=== PATIENT | female | born 1955 | race Caucasian/White ===

== ENCOUNTER 2017-01-11 08:00 | Inpatient (IN) ==
[2017-01-11] MEDS ORDERED: *HR* Promethazine 25 MG/ML VIAL IVP ONE (09:49)
[2017-01-11] MEDS ORDERED: Naloxone 0.4 MG/ML INJ IVP PRN (10:28)
[2017-01-11] MEDS ORDERED: *HR* Heparin 5,000 UNIT/ML VIAL IVP PRN (10:34)
[2017-01-11] MEDS ORDERED: Heparin 25,000 UNIT/500 ML D5W 25,000 UNIT/500 ML MLS IVC SCH (10:45)
--- NOTE | 2017-01-11 10:50 | Internal Med History&Physical ---
Date of Encounter: 01/11/17 Time of Encounter: 10:00 Assessment and Plan (1) STEMI (ST elevation myocardial infarction) Current visit: Yes Status: Suspected Initial EKG at [place] appears to be STEMI. Currently on IV heparin. Cardiology eval. ASA taken prior to going to ED this AM. To go for [facility] today. Suspect RCA lesion based on EKG changes. Qualifiers: Involved coronary artery: right coronary artery Qualified Code(s): I21.11 - ST elevation (STEMI) myocardial infarction involving right coronary artery (2) Bradycardia Current visit: No Status: Acute Currently NSR but having episodes of bradycardia and hypotension. Most likely related to RCA lesion. [facility] today. Cardiac monitoring on 2N. (3) Fibromyalgia Current visit: Yes Status: Suspected Normally takes amitriptyline at hs. Hold now due to concern for dysrhythmia in the setting of acute [place]. Internal Medicine - H&P: HPI Chief complaint: Arms tingling Admitted From: Hospital to Hospital Transfer Plans for Post Hospital Care: Home History of present illness: Ms. Rodriguez is a 62 year old female with no significant medical history presented to ED at [place] with weakness and arm tingling. She reported that she has noticed bilateral arm tingling when she has been walking. She also has been more dyspneic with walking over the last 5 days (her usual amount of exertion). She felt the tingling was related to carpel tunnel as it improved with changing position. This AM she got up around 2:00. On the way to the bathroom she became dizzy and felt urge to defecate. She used the bathroom and noted that she felt ill and nauseous and subsequently laid down on floor. She reported in ED that she had some chest heaviness then but denied this to me. Prior to going to ED she took 4 baby ASA. In ED at [place] she had reportedly negative EKG and initial troponin of 0.04. During the course of treatment she sat up and became bradycardic and hypotensive. She was given fluids and episode recurred when she sat up again. Repeat troponin was 0.35. Reportedly no EKG changes. Upon arrival to [facility] she denies chest heaviness or pain. No dyspnea. She did have some nausea initially (and heart rate dropped to 40s) but this has resolved. EKG here shows some T wave inversions inferiorly. Review of EKGs from earlier this AM show some subtle ST increase inferiorly. Cardiology has been consulted and is now at the bedside. Past Med Surg Social Fam HX - Past Medical History Medical history: fibromyalgia, other Psychiatric history: anxiety - Past Surgical History Surgical History: breast surgery, cholecystectomy - Social History Smoking Status: Never smoker Smokeless Tobacco Status: No Alcohol use: none Drug use: none Current living situation: Home - Independent Activity Level: Independent ambulation Recent Out of Country Travel Within the Last 8 Weeks: No - Family History Mother Hx Family Cardiac Disorders: Yes (CABG) Hx Family Cancer: Yes (sacral) Father Hx Family Cardiac Disorders: Yes ([place] age 52) Internal Medicine - H&P: Meds Amitriptyline [Elavil] 10 mg PO HS 01/11/17 [History] Amitriptyline [Elavil] 25 mg PO HS 01/11/17 [History] Naproxen Sodium [Aleve] 440 mg PO Q12H PRN 01/11/17 [History] Allergies Iodinated Contrast- Oral and IV Dye Allergy (Verified 01/11/17 03:51) Hives All Systems PM: A 10-system review of systems was performed and is negative for pertinent findings except as documented above in the HPI. - Constitutional Constitutional: fatigue, malaise Additional comments: Hot flashes since off hormonal therapy. - EENT Eyes: no change in vision, no dry eye, no loss of vision Ears: no decreased hearing, no ear pain Nose, mouth and throat: no dry mouth, no epistaxis, no mouth pain, no sore throat - Cardiovascular Cardiovascular ROS IM: diaphoresis, dyspnea, lightheadedness, no irregular heart rhythm - Respiratory Respiratory: dyspnea, no cough, no chest congestion - Gastrointestinal Gastrointestinal: diarrhea, no melena - Genitourinary Genitourinary: no dysuria, no urinary frequency, no urinary urgency Menstruation: post menopausal - Musculoskeletal Musculoskeletal ROS IM: arthralgias - Integumentary Integumentary IM: no new lesions, no rash - Neurological Neurological ROS: tingling, no dizziness - Psychiatric Psychiatric: no anxiety, no depression - Endocrine Endocrine IM: flushing, no cold intolerance - Hematologic/Lymphatic Hematologic/Lymphatic: no easy bleeding - Allergic/Immunologic Allergic/Immunologic: no throat swelling, no wheezing - Constitutional Vitals: Temp Pulse Resp BP Pulse Ox 98.2 F 76 18 125/67 100 01/11/17 09:41 01/11/17 09:41 01/11/17 09:41 01/11/17 09:41 01/11/17 09:41 General appearance: Present: mild distress, A&O X 3, pleasant, answers questions appropriately - Head Head exam: Present: normocephalic - Eye Eye exam: Present: EOMI, conjuntiva pink Pupils: Present: PERRL - ENT ENT exam: Present: mucous membranes moist - Neck Neck exam general surgery: Present: normal inspection. Absent: lymphadenopathy - Respiratory Respiratory exam: Present: CTAB. Absent: rhonchi, wheezes - Cardiovascular Cardiovascular exam: Present: RRR. Absent: tachycardia - GI/Abdominal GI/Abdominal exam: Present: normal bowel sounds, soft. Absent: mass, tenderness - Extremities Exam Extremities exam: Present: warm. Absent: pedal edema, tenderness Additional comments: Pulses palpable bilaterally - Neurological Exam Neurological exam: Present: alert, oriented X3, no focal deficits - Psychiatric Psychiatric exam: Present: normal affect, normal mood - Skin Skin exam: Present: dry, warm. Absent: rash Internal Med - H&P Results - Labs CBC & Chem 7: 01/11/17 11:22 - EKG Data -: EKG Interpreted by Myself EKG shows normal: ST-T waves (T wave inversion inferiorly) Rate: normal - VTE Reasons for not Prescribing Prophylaxis: Not indicated-Anticoagulated or INR therapeutic
--- NOTE | 2017-01-11 10:55 | Cardiology Consult Note ---
<Sofia Concepcion - Last Filed: 01/11/17 11:03> Date of Encounter: 01/11/17 Time of Encounter: 10:45 Assessment and Plan (1) STEMI (ST elevation myocardial infarction) Current Visit: Yes Status: Acute Per cardiology: -STEMI noted on initial ECG from [place] at [address] elevation in leads II, III, and aVF. -Patient will be going for LHC, currently on heparind drip. -Admits to chest achiness currently. Took ASA prior to arrival at [place]. -Troponin 0.03, 0.36. -Creatinine 0.79. -Risks versus benefits of LHC explained to patient and family. Patient agreeable to proceed with LHC. Of note, patient is allergic to IVP dye with hives as reaction. 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 -Further recommendations pending [facility]. Qualifiers: Involved coronary artery: unspecified coronary artery Qualified Code(s): I21.3 - ST elevation (STEMI) myocardial infarction of unspecified site (2) Bradycardia Current Visit: No Status: Acute Per cardiology: -ER report from [facility] reviewed with reports of bradycardia upon sitting with HRs decreasing to the 40s. -At bedside currently HRs 70s, while laying flat. -ECG with ST changes in inferior leads. -Patient will be going for LHC. -Suspect RCA lesion, culprit for bradycardia. Further recommendations pending [facility]. -Will continue to monitor. Discussion w patient/family: The assessment and plan as outlined above was discussed with the patient and/or family members who expressed understanding and agreement. All questions were answered. Thank you for involving us in the care of your patient. Please call with any questions. Seen and examined with . History of Present Illness Consult date: 01/11/17 Requesting physician: Wallace Torrez Consult reason: NSTEMI Chief complaint: nause, chest achiness History of present illness: Ms. Rodriguez is a 62 year old female with a relevant past medical history of fibromyalgia. Patient has a family history of CAD with father with CT at age 52 , mother with CABG in her 70s. Patient presented to [place] with complaints of nausea and chest "achiness." Patient states chest achiness occured last night , however nausea started in the middle of the night. Patient states she has noticed some tingling in both arms over the past week. Also reports increased use of tums for reflux symptoms in the past couple of weeks. Patient reports she is allergic to IVP dye and had hives with IVP dye. Patient states this reaction occured 44 years ago for a cat scan. Patient reports nausea at this time, and reports symptoms improve if she lays flat. If she sits up, however she feels dizzy and lightheaded and nausea increases. Past Med Surg Social Fam HX - Past Medical History Attestation: Yes The following information was validated with the patient. Source: patient, obtained from family Medical history: fibromyalgia, other Psychiatric history: anxiety - Social History Smoking Status: Never smoker Smokeless Tobacco Status: No Alcohol use: none Drug use: none Medications and Allergies Amitriptyline [Elavil] 10 mg PO HS 01/11/17 [History] Amitriptyline [Elavil] 25 mg PO HS 01/11/17 [History] Naproxen Sodium [Aleve] 440 mg PO Q12H PRN 01/11/17 [History] Allergies Iodinated Contrast- Oral and IV Dye Allergy (Verified 01/11/17 03:51) Hives All Systems Review: A 10-system review of systems was performed and is negative for pertinent findings except as documented above in the HPI. - Cardiovascular Cardiovascular: as per HPI - Gastrointestinal Gastrointestinal: nausea - Neurological Neurological: dizziness Physical Examination Vital Signs, Last 4 Hours Temp Pulse Resp BP Pulse Ox 01/11/17 09:41 98.2 F 76 18 125/67 100 01/11/17 09:38 86 General: Conversant, No Apparent Distress HEENT: Atraumatic, Normocephaly, Mucus Membranes Moist Neck: No JVD, Normal carotid pulses Cardiac: Reg Rate and Rhythm, Normal S1 and S2, No Murmur Lungs: Normal Breath Sounds, No Wheeze, Rales, Rhonchi Neuro: Alert and responsive, No focal deficits noted Abdomen: Soft, Non-Tender Skin: No rashes noted on visualized skin Musculoskeletal: No Chest Wall Tenderness Extremities: No Clubbing, No Cyanosis, No Edema, Normal Pulses Results Current Medications Heparin Sodium (Porcine) (Heparin) 2,000 unit IVP Q6H PRN PRN Reason: SEE COMMENTS Stop: 07/13/17 10:35 Heparin Sodium/Dextrose (Heparin 25,000 Unit/500 Ml D5w) 25,000 unit in 500 mls @ 19.41 mls/hr IVC .Q24H GLADYS; 12 UNIT/KG/HR PRN Reason: Protocol Stop: 07/13/17 10:46 Last Admin: 01/11/17 10:54 Dose: 12 unit/kg/hr, 19.41 mls/hr Naloxone HCl (Narcan) 0.4 mg IVP Q2MIN PRN PRN Reason: Opioid Reversal Stop: 07/13/17 10:29 Laboratory Tests 01/11/17 01/11/17 01/11/17 04:25 04:25 04:25 WBC 10.2 Hgb 14.5 Potassium 3.6 Creatinine 0.79 AST 18 ALT 19 Troponin I 0.03 01/11/17 06:29 WBC Hgb Potassium Creatinine AST ALT Troponin I 0.35 H* - Imaging and Cardiology Chest Xray: report reviewed Cardiac cath: pending - EKG Interpretation EKG results cardiology: personally reviewed (ECG 01/11/17 0336 with SR, HR 78. ST changes noted in leads II, III, and aVF.) Consult Discharge Plan - Plan Referrals: NONE,PCP [Primary Care Provider] - <Austen Willett - Last Filed: 01/11/17 17:27> Date of Encounter: 01/11/17 Assessment and Plan Discussion w patient/family: The assessment and plan as outlined above was discussed with the patient and/or family members who expressed understanding and agreement. All questions were answered. Thank you for involving us in the care of your patient. Please call with any questions. History of Present Illness History of present illness: Ms. Rodriguez is a 62 year old female Past Med Surg Social Fam HX - Family History Mother Hx Family Cardiac Disorders: Yes (CABG) Hx Family Cancer: Yes (sacral) Father Hx Family Cardiac Disorders: Yes (CT age 52) All Systems Review: A 10-system review of systems was performed and is negative for pertinent findings except as documented above in the HPI. Physical Examination Vital Signs, Last 4 Hours Temp Pulse Pulse Resp BP Pulse Ox 01/11/17 16:35 81 81 18 119/78 99 01/11/17 16:33 73 01/11/17 16:23 98.0 F 77 18 121/74 100 01/11/17 16:22 72 72 18 121/74 99 01/11/17 16:15 78 78 18 129/80 99 01/11/17 16:00 79 79 18 119/75 100 Results 01/11/17 11:22 Lab Results 01/11/17 01/11/17 11:22 11:22 WBC 10.8 Hgb 14.6 Hct 44.2 Plt Count 245 INR 1.2 APTT 90.3 H D - Attending Attestation Pt seen and examined independently, chart reviewed, old records reviewed. Pt complians of chest tightness, on and off for several weeks, sometimes provoked by exercise, more severe with walking last pm. Pt reports walking has provoked chest pain, mid sternl 6/10 at most severe, down to 3/10 following sublingual ntg. Chest pain has waxed and waned over last four hours, but has been improved with po nitrates. She reports recurrent episodes of this chest discomfort for several months, not as severe as today, accompanied shortness of breath, and bilat arm tingling, usually relieved with in five minutes of sitting. 1. STEMI - EKG demonstrates inferior infarction, pattern of injury suggests recent, recommend emergent LHC/possible PCI Risks and benefits discussed,,pt arees to proceed with diagnostic imaging and PCI if indicated. 2. Bradycardia, symptomatic if tries to stand up, secondary to #1
[2017-01-11 11:36] LABS: INR 1.2
[2017-01-11 11:38] LABS: Activated Partial Thrombo Time 90.3 Seconds (26.0-36.0)
[2017-01-11 11:39] LABS: Hematocrit 44.2 % (35.3-44.9); Hemoglobin 14.6 g/dL (11.5-15.4); Mean Corpuscular Hemoglobin 29.2 pg (28.0-33.3); Mean Corpuscular Volume 88.4 fL (83.0-100.0); Mean Platelet Volume 11.1 fL (9.4-12.4); Platelet Count 245 K/mcL (140-400); Red Cell Distribution Width 12.9 % (11.5-14.5)
[2017-01-11] MEDS ORDERED: *HR* Promethazine 25 MG/ML VIAL IVP PRN (12:36)
[2017-01-11] MEDS ORDERED: Ondansetron 4 MG/2 ML VIAL IVP PRN (13:03)
[2017-01-11] MEDS ORDERED: Nitroglycerin 1,000 MCG/10 ML VIAL IV ONE ×3 (13:36→15:48)
--- NOTE | 2017-01-11 13:59 | Pre-Sedation Evaluation ---
Pre-sedation evaluation - Pre-sedation checklist Date of procedure: 01/11/17 Procedure: [facility] Recent Vitals: Last Vital Signs Temp 98.2 F 01/11/17 09:41 Pulse 86 01/11/17 11:26 Resp 18 01/11/17 11:26 BP 129/78 01/11/17 11:26 Pulse Ox 98 01/11/17 11:26 H&P (including ROS) documented in medical record: No (Awaiting admitter to complete admission paperwork) Previous reaction to sedatives/anesthetics: No Dietary Status: NPO after Midnight Airway Assessment: Patient can open mouth completely, TMJ function normal, Micrognathia (under-bite, receding chin) absent, Neck with adequate range of motion Dentition: No loose teeth or bridges Possible difficult airway: No ASA Classification *see protocol: CLASS II-Mild systemic disease Plan of Care: Pt appropriate candidate for procedure/moderate/conscious sedation , Risks/benefits of procedure/sedation discussed w/ patient/family
[2017-01-11] MEDS ORDERED: *HR* Midazolam HCl 2 MG/2 ML VIAL ONE ×3 (14:00→15:04)
[2017-01-11] MEDS ORDERED: *HR* FentaNYL (PF) 100 MCG/2 ML VIAL ONE ×2 (14:01→15:04)
[2017-01-11] MEDS ORDERED: Heparin 1,000 UNITS/500 mL NS 500 ML ONE (14:01)
[2017-01-11] MEDS ORDERED: 0.9 % Sodium Chloride 1,000 ML ONE ×3 (14:01→20:42)
[2017-01-11] MEDS ORDERED: *HR* Heparin 10,000 UNIT/10 ML VIAL ONE ×2 (14:01→15:48)
[2017-01-11] MEDS ORDERED: methylPREDNISolone 125 MG/2 ML VIAL ONE ×2 (14:09→14:37)
[2017-01-11] MEDS ORDERED: *HR* Bivalirudin 250 MG VIAL IVC ONE ×2 (14:30→14:40)
[2017-01-11] MEDS ORDERED: *HR* Ticagrelor 90 MG TABLET ONE (15:17)
[2017-01-11] MEDS ORDERED: Heparin 1,000 UNITS/500 mL NS 0 ML ONE (15:48)
--- NOTE | 2017-01-11 16:05 | Invasive Diagnostic Lab Proc ---
Name: Merced Rodriguez Date of Study: 01/11/2017 Date: 1955 Ht: 61.8in Medical Record#: [id number] Age: 62 Wt: 178.57lb Gender: Female BSA: 1.82 Order #: [id number] BMI: 32.86 Physicians Procedure Physician: Latonia Lee MD, [facility] Referring MD: Referring MD: Staff Name Position Time In Emil Miller RT (R) Scrub 02:05 PM Josefa Adamsi RT Monitor 02:05 PM Moses Zapata RN Greens Laborer 02:05 PM Venita Humphreys RN Greens Laborer 02:06 PM Indications Indication Non-Stemi Procedures Performed Procedure L HRT ARTERY/VENTRICLE ANGIO PRQ CARD REVASC VT 1 VSL PRQ CARD LATISHA STENT W/ANGIO 1 VSL PRQ CARDIAC ANGIO ADDL ART Pre-Procedure Checklist Informed consent is complete signed and on chart. H&P is on chart. ID band is on and ID verified with patient. Patient NPO for procedure The procedure was described for the patient and questions were answered. Blood Pressure: 138/81 ECG is on chart. Rhythm: NSR Plan of Care Patient will tolerate the procedure without complications. Adequate level of comfort will be maintained. Hemodynamics will remain stable Patient will recover from procedure without complications. Respiratory function will be maintained. Cardiac rhythm will remain stable. Patient temperature will be maintained. Patient and/or family have verbalized understanding of the procedure. Patient Education Intravenous Access Time IV Size Location DC'd Fluid/Drip Rate Units RN 18g 1 /" Patent On Arrival Lt Antecubital 0.9NaCl Allergies Iodinated Contrast- Oral and IV Dye Vital Signs Time BP (mmHg) HR (bpm) O2 Sat. RR (bpm) LOC 02:19 PM / % 5 = Fully awake and oriented or at pre-proc level 02:19 PM / % 4 = Oriented but drowsy 02:34 PM / % 4 = Oriented but drowsy 02:49 PM / % 4 = Oriented but drowsy 03:06 PM / % 4 = Oriented but drowsy 02:15 PM 151 / 86 84 100 % 23 02:20 PM 140 / 88 81 100 % 15 02:25 PM 138 / 81 77 100 % 14 02:30 PM 121 / 70 75 100 % 15 02:35 PM 127 / 80 73 100 % 16 02:40 PM 134 / 85 87 99 % 16 02:45 PM 126 / 82 80 95 % 19 02:50 PM 127 / 81 81 95 % 14 02:55 PM 133 / 83 81 99 % 23 03:00 PM 118 / 71 79 95 % 18 03:05 PM 122 / 68 73 97 % 13 03:10 PM 129 / 82 80 97 % 16 03:15 PM 131 / 85 81 98 % 14 03:20 PM 134 / 79 77 99 % 15 03:25 PM 123 / 75 85 99 % 14 Procedural Medications Time Medication Dose Units Method Given By 02:15 PM Oxygen 2 L/min nasal cannula Moses Zapata RN 02:40 PM Versed 1 mg Intravenous Moses Zapata RN 02:40 PM Fentanyl 25 mcg Intravenous Moses Zapata RN 02:38 PM Solu-medrol 125 mg Intravenous Moses Zapata RN 02:39 PM Benadryl 25 mg Intravenous Moses Zapata RN 02:23 PM Lidocaine 2% 15 ml Subcutaneous Latonia Lee MD, FACC 02:35 PM Angiomax 0.75mg/kg bolus: 12 ml Intravenous Moses Zapata RN 02:35 PM Angiomax 1.75mg/kg/hr: 28 ml Intravenous Moses Zapata RN 02:43 PM Versed 1 mg Intravenous Moses Zapata RN 02:43 PM Fentanyl 25 mcg Intravenous Moses Zapata RN 02:48 PM Oxygen 4 L/min nasal cannula Moses Zapata RN 02:55 PM Nitroglycerin 200 mcg Intracoronary Latonia Lee MD, FACC 03:01 PM Angiomax 1.75mg/kg/hr: 28 ml Intravenous Moses Zapata RN 03:06 PM Versed 1 mg Intravenous Moses Zapata RN 03:06 PM Fentanyl 25 mcg Intravenous Moses Zapata RN 03:23 PM Nitroglycerin 200 mcg Intracoronary Latonia Lee MD, FACC 03:26 PM Brilinta 180 mg Orally Moses Zapata RN ASA Classification: CLASS II- Mild systemic disease (i.e. well-controlled diabetes, hypertension, asthma, cigarette smoking) Manjeet Score Preprocedure Postprocedure Activity 2- Moves 4 extremities sustained head lift Activity 2- Moves 4 extremities sustained head lift Circulation 2- SBP +/= 20 points of pre-anesthetic level Circulation 2- SBP +/= 20 points of pre-anesthetic level Consciousness 2- Awake and alert oriented x 3 Consciousness 2- Awake and alert oriented x 3 O2 Saturation 2- Able to maintain O2 satruation of 92% on room air O2 Saturation 2- Able to maintain O2 satruation of 92% on room air Respiratory 2- Able to deep breathe and cough well Respiratory 2- Able to deep breathe and cough well Total Score 10 Total Score 10 Contrast Agent: Isovue Diagnostic Contrast: 185 ml Total Contrast: 185 ml Fluoro Dose: 848 mGy Procedure Log Time Note Enter By 02:05 PM 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 02:14 PM Vitals capture started with the following parameters, Patient=Adult, Interval=5 min, Initial Yujybjgt=328 mmHg, Deflation Rate=5 mmHg, Cuff placed on Left Arm 02:15 PM HR=84 bpm, ISZU=109/86 mmhg, RgR7=206.0 %, Resp=23 B/min 02:15 PM Time: 14:15 Oxygen on at 2 L/min per nasal cannula by Moses Zapata RN 02:15 PM Time: 14:15 Versed 1 mg Intravenous Given by Moses Zapata RN 02:16 PM Time: 14:15 Fentanyl 25 mcg Intravenous Given by Moses Zapata RN 02:16 PM Time: 14:16 Solu-medrol 125 mg Intravenous Given by Moses Zapata RN 02:18 PM Time: 14:18 Benadryl 25 mg Intravenous Given by Moses Zapata RN :19 PM ASA Class CLASS II- Mild systemic disease (i.e. well-controlled diabetes, hypertension, asthma, cigarette smoking) kk:19 PM Meet and greirvin completed : PM Sign in performed according to hospital policy. : PM Procedure start 14:19 : PM Time: 14:19 Patient comfortable and pain free: Yes : PM Time: 14:19LOC: 5 = Fully awake and oriented or at pre-proc level kk: PM Pressure channel 1 zeroed. 02:20 PM HR=81 bpm, RKWQ=836/88 mmhg, YwD2=882.0 %, Resp=15 B/min, Comment=sr 02:21 PM Time out performed according to hospital policy 02: PM Clinical Presentation: Non-STEMI 02: PM Time: 14:22 Versed 1 mg Intravenous Given by Moses Zapata RN : PM Time: 14:22 Fentanyl 25 mcg Intravenous Given by Moses Zapata RN 02:23 PM Time: 14:23 15 ml Lidocaine 2% to right groin Subcutaneous Given by Latonia Lee MD, [facility] 02:24 PM Access obtained by percutaneous puncture. 5Fr 10cm Terumo [place] sheath placed in right Femoral artery. [id number] 02:25 PM 5Fr FL 4 catheter inserted over the wire [facility] :25 PM HR=77 bpm, PKNY=088/81 mmhg, SpM0=712.0 %, Resp=14 B/min 02:26 PM wire removed 02:27 PM Recorded Pressure: Ao, HR=58, Condition=Condition 1 (Aorta) Ao 88/54/69 02:28 PM LCA angiography performed in multiple views. kk 02:28 PM Catheter removed : PM 5Fr FR 4 catheter inserted over the wire [facility] 02:28 PM wire removed kk 02:28 PM RCA angiography performed in multiple views. [email or web address] 02:30 PM Catheter removed 02:30 PM HR=75 bpm, MQCD=695/70 mmhg, ZnD7=466.0 %, Resp=15 B/min 02:30 PM 5Fr Pigtail catheter inserted over the wire [facility] kk 02:30 PM Catheter selectively placed in left ventricle [email or web address] 02:31 PM Pressure channel 1 zeroed. 02:31 PM Bolus angiogram of left Ventricle complete: 8 ml/sec for a total of 24 mls [email or web address] 02:31 PM Recorded Pressure: LV, HR=77, Condition=Condition 1 (Left Ventricle) LV 86/11/12 02:31 PM Recorded Pressure: LV, Ao, HR=77, Condition=Condition 1 (Left Ventricle) LV 89/16/20, (Aorta) Ao 96/31/73 02:32 PM Catheter removed kk 02:32 PM Sheath exchanged for a 6 Fr 11 cm Rallyhood [place] sheath [id number] kkallner 02:33 PM 6Fr JR 4 [place] Bright-Tip guide catheter was used to cannulate the PCI vessel successfully. reused? No kkallner 02:34 PM wire removed kk 02:34 PM Time: 14:19LOC: 4 = Oriented but drowsy kk 02:34 PM Time: 14:19 Patient comfortable and pain free: Yes [email or web address] 02:34 PM .014 Prowater 180cm guide wire across target lesion- successful. reused? No [email or web address] 02:35 PM Time: 14:35 Angiomax 0.75mg/kg bolus: 12 ml Intravenous Given by Moses Zapata RN Frost pump kkallner 02:35 PM HR=73 bpm, EGMR=712/80 mmhg, FkD3=176.0 %, Resp=16 B/min, Comment=sr 02:35 PM Time: 14:35 Angiomax 1.75mg/kg/hr: 28 ml Intravenous Given by Moses Zapata RN Frost pump kkallner 02:36 PM Recorded Pressure: Ao, HR=81, Condition=Condition 1 (Aorta) Ao 119/64/88 02:38 PM 2.0 mm x 15 mm Mini Trek Rx balloon across target lesion- successful. reused? No kkallner 02:39 PM Balloon inflated @ 8 tong for 15 seconds kkallner 02:40 PM Balloon inflated @ 14 tong for 15 seconds kkallner 02:40 PM HR=87 bpm, DLMM=365/85 mmhg, SpO2=99.0 %, Resp=16 B/min, Comment=sr 02:41 PM Balloon inflated @ 14 tong for 15 seconds kkallner 02:41 PM Balloon inflated @ 8 tong for 15 seconds kkallner 02:42 PM Balloon inflated @ 14 tong for 15 seconds kkallner 02:42 PM Recorded Pressure: Ao, HR=86, Condition=Condition 1 (Aorta) Ao 98/67/82 02:43 PM Balloon inflated @ 14 tong for 15 seconds [email or web address] 02:43 PM Time: 14:43 Versed 1 mg Intravenous Given by Moses Zapata RN kkner 02:43 PM Time: 14:43 Fentanyl 25 mcg Intravenous Given by Moses Zapata RN [email or web address] 02:45 PM Balloon catheter removed intact. [email or web address] 02:45 PM HR=80 bpm, QPUS=741/82 mmhg, SpO2=95.0 %, Resp=19 B/min, Comment=sr 02:45 PM .014 PT Graphix 182cm guide wire across target lesion- successful. reused? No kkallner 02:47 PM 2.0 x 15 balloon reinserted on PT Graphix advanced to ostium of PDA kkallner 02:48 PM Time: 14:48 Oxygen on at 4 L/min per nasal cannula by Moses Zapata RN kkallner 02:49 PM Balloon inflated @ 8 tong for 20 seconds kkallner 02:49 PM Balloon inflated @ 8 tong for 20 seconds kkallner 02:49 PM Time: 14:34LOC: 4 = Oriented but drowsy kkallner 02:49 PM Time: 14:34 Patient comfortable and pain free: Yes [email or web address] 02:50 PM Recorded Pressure: Ao, HR=82, Condition=Condition 1 (Aorta) Ao 102/78/90 02:50 PM HR=81 bpm, JVMN=518/81 mmhg, SpO2=95 %, Resp=14 B/min 02:50 PM Balloon catheter removed intact. [email or web address] 02:52 PM 3.0mm x 20mm Synergy drug-eluting stent across target lesion- successful Lot #[id number] on Prowater kkallner 02:53 PM PT Graphix removed kkallner 02:53 PM Balloon inflated @ 12 tong for 30 seconds kkallner 02:54 PM Balloon inflated @ 16 tong for 12 seconds kkallner 02:55 PM Stent delivery system removed intact. [email or web address] 02:55 PM HR=81 bpm, AJIY=475/83 mmhg, SpO2=99.0 %, Resp=23 B/min 02:55 PM Time: 14:55 Nitroglycerin 200 mcg Intracoronary Given by Latonia Lee MD, [facility] kkallner 02:56 PM Prowater removed kkallner 02:56 PM Guide catheter removed intact. [email or web address] 03:00 PM HR=79 bpm, IVSW=145/71 mmhg, SpO2=95.0 %, Resp=18 B/min 03:00 PM 6Fr XB LAD 3.5 [place] Bright-Tip guide catheter was used to cannulate the PCI vessel successfully. reused? No kkallner 03:01 PM Time: 15:01 Angiomax 1.75mg/kg/hr: 28 ml Intravenous Given by Moses Zapata RN Frost pump kkallner 03:01 PM wire removed kkallner 03:05 PM HR=73 bpm, WZMA=220/68 mmhg, SpO2=97.0 %, Resp=13 B/min, Comment=sr 03:06 PM Time: 14:49 Patient comfortable and pain free: Yes [email or web address] 03:06 PM Time: 14:49LOC: 4 = Oriented but drowsy kkallner 03:06 PM Time: 15:06 Versed 1 mg Intravenous Given by Moses Zapata RN [email or web address] 03:06 PM Time: 15:06 Fentanyl 25 mcg Intravenous Given by Moses Zapata RN [email or web address] 03:07 PM Prowater reinserted kkallner 03:08 PM PT Graphix reinserted kkallner 03:10 PM HR=80 bpm, YKLY=651/82 mmhg, SpO2=97.0 %, Resp=16 B/min 03:11 PM 1.5 mm x 15 mm Emerge Monorail balloon across target lesion- successful. reused? No on PT Graphix Diag kkallner 03:12 PM Balloon inflated @ 10 tnog for 37 seconds kkallner 03:13 PM Balloon inflated @ 10 tong for 20 seconds kkallner 03:15 PM HR=81 bpm, ZERN=624/85 mmhg, SpO2=98.0 %, Resp=14 B/min 03:17 PM Balloon catheter removed intact. [email or web address] 03:17 PM 2.0 x 15 balloon reinserted kkallner 03:17 PM Balloon inflated @ 8 tong for 21 seconds kkallner 03:18 PM Balloon catheter removed intact. [email or web address] 03:20 PM 2.75mm x 20mm Synergy drug-eluting stent across target lesion- successful Lot #[id number] [email or web address] 03:20 PM HR=77 bpm, MLII=186/79 mmhg, SpO2=99.0 %, Resp=15 B/min, Comment=sr 03:21 PM Time: 15:06LOC: 4 = Oriented but drowsy [email or web address] 03:21 PM Time: 15:06 Patient comfortable and pain free: Yes [email or web address] 03:21 PM Stent deployed @ 12 tong for 30 seconds kkallner 03:22 PM Stent delivery system removed intact. [email or web address] 03:24 PM Time: 15:23 Nitroglycerin 200 mcg Intracoronary Given by Latonia Lee MD, FACC kkallner 03:24 PM wires removed kkallner 03:25 PM HR=85 bpm, DDIE=743/75 mmhg, SpO2=99.0 %, Resp=14 B/min 03:25 PM Guide catheter removed intact. [email or web address] 03:25 PM Bolus angiogram of right Femoral complete: 4 ml/sec for a total of 7 mls kkner 03:26 PM Time: 15:26 Brilinta 180 mg Orally Given by Moses Zapata RN [email or web address] 03:28 PM Procedure completed at 15:28 [email or web address] 03:29 PM Sign out completed: Radiation Dose 847.87 mGy Fluoro Time: 16.7 Isovue 370 - 200ml contrast 185 ml given by Latonia Lee MD, FACC. Complications: NoneCardiac Rehab Consult needed: YesConfirmed administered medications: Yes [email or web address] 03:29 PM Isovue 370 - 200ml,1 Bottle(s) used. [email or web address] 03:29 PM Sheath left in place to be pulled on floor/holding area kkallner 03:29 PM Post ECG NSR kkallner 03:29 PM Post Blood Pressure 123/75 kkallner 03:35 PM 15:35 Post Pulses Bilateral DP & PT 2+ kkallner 03:35 PM Information taught Cardiac Cath and PCI kkallner 03:36 PM Education needs Procedure, Plan of Care, and Responsibilities of Patient in Care kkallner 03:36 PM Learning barriers :None kkallner 03:36 PM Education Methods Verbal kkallner 03:36 PM Education evaluation Able to repeat information kkallner 03:36 PM Site status No bleeding/hematoma - Rt Groin as reported by Emil Miller RT (R) at 15:36 kkallner 03:36 PM Opsite applied kkallner 03:36 PM Plavix, Effient or Brilinta given Yes kkallner 03:36 PM Delay to floor No [email or web address] 03:36 PM Patient out of room: 15:36 kkallner 03:36 PM Family placed in consult room. [email or web address] 03:36 PM Complications: None kkallner 03:36 PM Fluoro Time: 16.7 kkallner 03:36 PM Isovue 370 - 200ml contrast 185 ml given by Latonia Lee MD, [facility]. [email or web address] 03:36 PM Radiation Dose 847.87 mGy kkallner 03:40 PM Coronary Dominance: right [email or web address] 03:40 PM Lesion found in LMCA. Pre Stenosis: 15 Pre WALLY Flow: [email or web address] 03:41 PM Lesion found in Proximal LAD. Pre Stenosis: 30 Pre WALLY Flow: kkallner 03:41 PM Lesion found in Mid LAD. Pre Stenosis: 99 Pre WALLY Flow: [email or web address] 03:41 PM Lesion found in 1st Diagonal. Pre Stenosis: 99 Pre WALLY Flow: kkallner 03:41 PM Lesion found in Proximal Circumflex. Pre Stenosis: 30 Pre WALLY Flow: kkallner 03:41 PM Lesion found in 1st Marginal. Pre Stenosis: 99 Pre WALLY Flow: kkallner 03:42 PM Lesion found in Mid RCA. Pre Stenosis: 40 Pre WALLY Flow: kkallner 03:42 PM Lesion found in Distal RCA. Pre Stenosis: 100 Pre WALLY Flow: kkallner 03:42 PM Left Main Coronary Artery with 15% stenosis kkallner 03:42 PM Proximal Left Anterior Descending Coronary Artery with 30% stenosis. If graft is supplying this territory, 0 % stenosis. kkallner 03:42 PM Mid/Distal Left Anterior Descending Coronary Artery and diagonal branches with 99% stenosis. If graft is supplying this area, 0 % stenosis kkallner 03:43 PM Circumflex, Obtuse Marginal, Left Posterior Descending, and Left Posterolateral Coronary Arteries with 99 % stenosis. If graft is supplying this area, 0 % stenosis kkallner 03:43 PM Right Coronary, Right Posterior Descending Arteries with Right Posterolateral and Acute Marginal branches with 100 % stenosis. If graft is supplying this area, 0 % stenosis kkallner 03:43 PM Ramus with 0% stenosis. If graft is supplying this area, 0 % stenosis kkallner 03:44 PM Report given to 2n RN RN Pt taken to 2N Room #7. 15:43 [email or web address] Complications Complication None None Hemodynamics Pressures Site Systolic/A Wave Diastolic/V Wave Mean AO 88 54 69 LV 86 11 12 LV 89 16 20 AO 96 31 73 AO 119 64 88 AO 98 67 82 AO 102 78 90 Post Procedure Information Blood Pressure: 123/75 mmHg Rhythm: NSR Post procedural instructions were given Site Checks Time Location Status Staff Sheath In? Note 03:36 PM Rt Groin No bleeding/hematoma Emil Miller RT (R) Pulses Time Site Pre-Procedure Post-Procedure Note Bilateral DP & PT 2+ 2+ Bilateral radial 2+ 2+ 3:35:00 PM Bilateral DP & PT 2+ Updated by Asya Adams RT (R) on 01/11/2017 3:57:58 PM electronically signed on 01/11/2017 3:58:52 PM with status of Final
[2017-01-11] MEDS ORDERED: Nitroglycerin 0.4 MG TAB.SUBL SL PRN (16:11)
[2017-01-11] MEDS ORDERED: *HR* Morphine 2 MG/ML SYRINGE IVP PRN (16:22)
[2017-01-11] MEDS ORDERED: *HR* HYDROcodone/Acet 5/325 mg TABLET PO PRN (16:23)
[2017-01-11] MEDS ORDERED: Simethicone 80 MG TAB.CHEW PO PRN (16:28)
[2017-01-11] MEDS ORDERED: Ketorolac 30 MG/ML VIAL IVP ONE (16:46)
--- NOTE | 2017-01-11 17:45 | Invasive Diagnostic Lab ---
Name: Merced Rodriguez Date of Study: 01/11/2017 Date: 1955 Ht: 157.0 cm /61.8 in Medical Record#: [id number] Age: 62 Wt: 81. kg / 178.57 lb Account/Order#: [id number] Gender: Female BSA: 1.82 Order #: [id number] Fluoro Dose: 848 mGy BMI: 32.86 Procedure Physician: Latonia Lee MD, [facility] Referring MD: Referring MD: Procedures Performed: LEFT HEART CATH PCI of Acute ND Stent w/ PTCA Single Major Vessel PTCA each add'l branch Indications: STEMI Impressions: Acute ND due to acute thrombotic occlusion of distal RCA. Triple vessel coronary artery disease. Moderate segmental LV dysfunction. EF 40% Patient had successful PTCA/Drug-Eluting Stent placement in the distal RCA. Patient had successful PTCA/Drug-Eluting Stent placement in the mid LAD. Patient had successful PTCA of diagonal 1. Recommendations: Staged PCI of OM1. Dual antiplatelet therapy. Optimal medical therapy of patient's disease. Aggressive risk factor modification. Procedure Access obtained in the right Femoral artery by percutaneous puncture Patient had successful PTCA in the proximal 1st Diagonal. Patient had successful PTCA/Drug-Eluting Stent placement in the distal RCA. Patient had successful PTCA/Drug-Eluting Stent placement in the mid LAD. Complications: None, None Contrast: Isovue 185ml Hemodynamics: Pressures Site Systolic/ A Wave Diastolic/ V Wave End Diastolic/ Mean HR AO 88 54 69 58 LV 86 11 12 77 LV 89 16 20 78 AO 96 31 73 76 AO 119 64 88 81 AO 98 67 82 86 AO 102 78 90 82 LV Ventriculography Ejection Method: LV Gram Ejection Fraction: 40% Wall Motion: CHANDLER Anterobasal Normal Anterolateral Normal Apical: Normal Inferoapical Severe Hypokinesis Inferobasal Severe Hypokinesis Coronary Dominance: right Lesion Findings/Interventions * Left Main Coronary Artery There is a 15% stenosis in the LMCA. * Left Anterior Descending There is a 30% stenosis in the Proximal LAD. There is a 20 mm long, 99% stenosis in the Mid LAD. The lesion has a WALLY flow of 3. An intervention was performed on the Mid LAD with a final stenosis of 0%. There were no lesion complications. The final WALLY flow was 3. There is a 15 mm long, 99% stenosis in the 1st Diagonal. The lesion has a WALLY flow of 3. An intervention was performed on the 1st Diagonal with a final stenosis of 30%. There were no lesion complications. The final WALLY flow was 3. * Circumflex There is a 30% stenosis in the Proximal Circumflex. There is a 99% stenosis in the 1st Marginal. * Right Coronary Artery There is a 40% stenosis in the Mid RCA. There is a 20 mm long, 100% stenosis in the Distal RCA. The lesion has a WALLY flow of 0, has thrombus present, and is a bifurcation lesion. An intervention was performed on the Distal RCA with a final stenosis of 0%. There were no lesion complications. The final WALLY flow was 3. Interventional Device(s) Vessel Segment Type Name Diameter (mm) Length (mm) Mid LAD Drug Eluting Stent Synergy 2.75 20 Mid LAD Balloon Mini Trek Rx 2 15 1st Diagonal balloon Emerge Monorail 1.5 15 Distal RCA Balloon Mini Trek Rx 2 15 Distal RCA Drug Eluting Stent Synergy 3 20 Updated by Latonia Lee MD, FACC on 01/11/2017 5:39:52 PM Latonia Lee MD, FACC electronically signed on 01/11/2017 5:40:48 PM with status of Final
[2017-01-11] MEDS ORDERED: *HR* Atropine Sulfate 1 MG/10 ML SYRINGE ONE (19:44)
[2017-01-12 03:33] LABS: Basophils % 0.1 %; Immature Granulocytes % 0.5 % (0-4); Lymphocytes % 7.3 %; Mean Corpuscular HGB Conc 32.8 g/dL (31.6-35.5); Mean Corpuscular Volume 88.2 fL (83.0-100.0); Monocytes # 0.8 K/mcL (0.0-1.3); Monocytes % 5.6 %; Neutrophils # 11.7 K/mcL (1.6-8.9); Platelet Count 239 K/mcL (140-400); Red Blood Count 4.42 M/mcL (3.82-4.97); Segmented Neutrophils % 86.5 %
[2017-01-12 03:34] LABS: Hemoglobin 12.8 g/dL (11.5-15.4)
[2017-01-12 03:43] LABS: BUN/Creatinine Ratio 17 (6-26); Blood Urea Nitrogen 13 mg/dL (7-20); Calcium 8.9 mg/dL (8.6-10.8); Carbon Dioxide 24 mEq/L (19-29); Chloride 108 mEq/L (98-109); Glucose 151 mg/dL (70-99); Osmolality,Calculated 291 (280-300); Potassium 3.6 mEq/L (3.5-4.5); Sodium 139 mEq/L (136-145); eGFR For African Americans > 60 (> 60); eGFR For Non-African Americans > 60 (> 60)
[2017-01-12] MEDS: Aspirin Enteric Coated 81 MG Tablet PO SCH (07:57)
--- NOTE | 2017-01-12 10:53 | Cardiology Progress Note ---
Date of Encounter: 01/12/17 Time of Encounter: 10:48 Assessment and Plan (1) STEMI (ST elevation myocardial infarction) Current Visit: Yes Status: Suspected Per cardiology: -STEMI noted on initial ECG from [place] at [address] elevation in leads II, III, and aVF. -Troponin 0.03, 0.36. -S/P LHC yesterday revealed acute UT due to acute thrombotic occlusion of distal RCA. Triple vessel CAD. Moderate segmental LV dysfunction EF 40%. Pt had successful PTCA/LATISHA in distal RCA and mid LAD. Successful PTCA of diag 1. -Needs staged PCI of OM as outpt. -Echo pending. -DAPT (ASA and Plavix) uninterrupted x 1 year. Pt verbalizes understanding. Continue Statin. Has not yet received BB or SUZIE-i due to hypotension. Will resume once BP allows. -Pt denies chest pain or dyspnea overnight. Reports episode of nausea with sheath pull when she became hypotensive. -Right femoral access site healing well. No bleeding, hematoma or ecchymosis noted. -Continue to follow, await echo results, monitor BP. Anticipate discharge tomorrow. Qualifiers: Involved coronary artery: right coronary artery Qualified Code(s): I21.11 - ST elevation (STEMI) myocardial infarction involving right coronary artery (2) CAD (coronary artery disease) Current Visit: Yes Status: Acute As above, S/P STEMI and LATISHA to distal RCA and mid LAD, PTCA to diag 1. Needs staged PCI of OM as outpt. ASA, Plavix, Statin. BB and SUZIE-i once BP allows. Qualifiers: Coronary Disease-Associated Artery/Lesion type: [place] artery [place] vs. transplanted heart: [place] heart Associated angina: without angina Qualified Code(s): I25.10 - Atherosclerotic heart disease of [place] coronary artery without angina pectoris (3) Ischemic cardiomyopathy Current Visit: Yes Status: Acute EF on [facility] 40% in setting of STEMI. Echo ordered. BB and SUZIE-i ordered, but not given due to hypotension. Will give once/if BP allows. Pt euvolemic on exam. (4) Hypotension Current Visit: Yes Status: Acute BP as low as 87/48 overnight during sheath pull, received IV fluid bolus. BP this AM 101/64. BB and SUZIE-i currently on hold. Continue to monitor and attempt to resume BB and SUZIE-i once/if BP allows. Qualifiers: Hypotension type: unspecified hypotension type Qualified Code(s): I95.9 - Hypotension, unspecified Discussion w patient/family: The assessment and plan as outlined above was discussed with the patient and/or family members who expressed understanding and agreement. All questions were answered. Thank you for involving us in the care of your patient. Please call with any questions. I will discuss all the above with Dr. Willett and make changes as necessary. Subjective Principal diagnosis: STEMI, CAD Interval history: S/P C yesterday for STEMI. Acute UT due to acute thrombotic occlusion of distal RCA. Triple vessel CAD. Moderate segmental LV dysfunction, EF 40%. Pt had successful PTCA/LATISHA in distal RCA and in mid LAD. Successful PTCA of Diag 1. Pt denies any chest pain or dyspnea overnight. Reports one episode of nausea with sheath pull overnight when she became hypotensive. Objective Vital Signs, Last 4 Hours Temp Pulse Resp BP Pulse Ox 01/12/17 07:31 98.1 F 91 16 101/64 97 01/12/17 07:00 80 Vital Signs Temp Pulse Pulse Resp BP Pulse Ox 01/12/17 07:31 98.1 F 91 16 101/64 97 01/12/17 07:00 80 01/12/17 04:35 98.8 F 95 91/55 01/12/17 02:33 88 93/53 01/12/17 01:27 94 87/48 01/12/17 00:25 80 96/56 01/11/17 23:15 98.7 F 89 105/63 01/11/17 22:45 83 109/63 01/11/17 22:15 87 111/65 01/11/17 21:45 85 110/66 01/11/17 21:35 90 117/65 01/11/17 21:20 91 116/69 01/11/17 21:05 84 112/69 01/11/17 21:00 84 111/63 01/11/17 20:50 88 16 99/54 96 01/11/17 20:45 80 17 93/49 95 01/11/17 20:40 71 19 73/41 94 01/11/17 20:35 73 16 91/55 01/11/17 20:30 87 16 112/67 97 01/11/17 20:25 91 15 123/63 95 01/11/17 20:17 87 16 114/67 95 01/11/17 18:45 88 88 18 125/76 98 01/11/17 18:30 90 90 18 125/80 97 01/11/17 18:15 87 87 18 128/70 98 01/11/17 18:00 89 89 18 121/73 97 01/11/17 17:50 86 86 18 122/72 96 01/11/17 17:35 82 82 18 114/72 98 01/11/17 17:20 78 78 18 113/69 97 01/11/17 17:05 80 80 18 118/74 97 01/11/17 16:50 80 80 18 117/74 96 01/11/17 16:35 81 81 18 119/78 99 01/11/17 16:33 73 01/11/17 16:23 98.0 F 77 18 121/74 100 01/11/17 16:22 72 72 18 121/74 99 01/11/17 16:15 78 78 18 129/80 99 01/11/17 16:00 79 79 18 119/75 100 01/11/17 11:26 86 18 129/78 98 Intake and Output 01/11/17 01/12/17 01/12/17 23:59 07:59 15:59 Intake Total 0 / 0 360 / 360 Output Total 1425 / 1425 Balance -1425 / -1425 360 / 360 Intake: Oral 0 / 0 360 / 360 Output: Catheter 1425 / 1425 Other: Meal Breakfast Percent of Meal Consumed 90% Weight 82.2 kg Patient Weight 01/12/17 23:59 Weight 82.2 kg General: Conversant, No Apparent Distress HEENT: Atraumatic, Normocephaly, Mucus Membranes Moist Neck: No JVD, Normal carotid pulses Cardiac: Reg Rate and Rhythm, Normal S1 and S2, No Murmur Lungs: Normal Breath Sounds, No Wheeze, Rales, Rhonchi Neuro: Alert and responsive, No focal deficits noted Abdomen: Soft, Non-Tender Skin: Other (right femoral access site healing well. No bleeding, hematoma or ecchymosis noted.) Musculoskeletal: No Chest Wall Tenderness Extremities: No Clubbing, No Cyanosis, No Edema, Normal Pulses Results 01/12/17 03:21 01/12/17 03:21 Lab Results 01/11/17 01/11/17 01/12/17 11:22 11:22 03:21 WBC 10.8 13.5 H Hgb 14.6 12.8 D Hct 44.2 39.0 Plt Count 245 239 INR 1.2 APTT 90.3 H D Sodium Potassium Chloride Carbon Dioxide BUN Creatinine Glucose Calcium 01/12/17 03:21 WBC Hgb Hct Plt Count INR APTT Sodium 139 Potassium 3.6 Chloride 108 Carbon Dioxide 24 BUN 13 Creatinine 0.75 Glucose 151 H Calcium 8.9 Short CBC 01/12/17 01/11/17 Range/Units 03:21 11:22 WBC 13.5 H 10.8 (4.3-11.1) K/mcL Hgb 12.8 D 14.6 (11.5-15.4) g/dL Hct 39.0 44.2 (35.3-44.9) % Plt Count 239 245 (140-400) K/mcL Neutrophils # 11.7 H (1.6-8.9) K/mcL BMP 01/12/17 Range/Units 03:21 Sodium 139 (136-145) mEq/L Potassium 3.6 (3.5-4.5) mEq/L Chloride 108 (98-109) mEq/L Carbon Dioxide 24 (19-29) mEq/L BUN 13 (7-20) mg/dL Creatinine 0.75 (0.57-1.11) mg/dL Glucose 151 H (70-99) mg/dL Calcium 8.9 (8.6-10.8) mg/dL Active Medications Hydrocodone Bitart/Acetaminophen ([place] 5-325 Mg) 1 tab PO Q4HR PRN PRN Reason: Pain Stop: 07/13/17 16:24 Aspirin (Aspirin Ec) 81 mg PO DAILY [facility] Stop: 07/14/17 09:01 Last Admin: 01/12/17 07:57 Dose: 81 mg Atorvastatin Calcium (Lipitor) 80 mg PO HS [facility] Stop: 07/13/17 21:01 Last Admin: 01/11/17 21:46 Dose: 80 mg Carvedilol (Coreg) 6.25 mg PO BIDWM [facility] PRN Reason: Protocol Stop: 07/13/17 17:01 Last Admin: 01/11/17 21:47 Dose: Not Given Clopidogrel Bisulfate (Plavix) 75 mg PO DAILY [facility] Stop: 07/14/17 09:01 Last Admin: 01/12/17 07:57 Dose: 75 mg Lisinopril (Zestril) 2.5 mg PO DAILY [facility] PRN Reason: Protocol Stop: 07/14/17 09:01 Morphine Sulfate (Morphine Sulfate) 2 mg IVP Q4HR PRN PRN Reason: Pain Stop: 07/13/17 16:23 Naloxone HCl (Narcan) 0.4 mg IVP Q2MIN PRN PRN Reason: Opioid Reversal Stop: 07/13/17 10:29 Nitroglycerin (Nitroglycerin) 0.4 mg SL Q5MIN PRN PRN Reason: Chest Pain Stop: 07/13/17 16:12 Ondansetron HCl (Zofran) 4 mg IVP Q6HR PRN; Protocol PRN Reason: Nausea Stop: 07/13/17 13:04 Last Admin: 01/11/17 13:15 Dose: 4 mg Promethazine HCl (Phenergan) 12.5 mg IVP Q6HR PRN PRN Reason: Nausea And Vomiting Stop: 07/13/17 12:37 Last Admin: 01/11/17 20:07 Dose: 12.5 mg Simethicone (Gas-X) 80 mg PO TID PRN PRN Reason: Dyspepsia Stop: 07/13/17 16:29 Last Admin: 01/11/17 17:21 Dose: 80 mg - Imaging and Cardiology Cardiac cath: report reviewed - EKG Interpretation EKG results cardiology: other (12 hr tele AVG HR 88, SR, no significant pauses or arrhythmias) - VTE Reasons for not Prescribing Prophylaxis: Not indicated-Anticoagulated or INR therapeutic Consult Discharge Plan - Plan Referrals: Zoey Arthur MD [Non-Partnered Physician] - Nelly Patton CNP [Partnered Physician] - (CARDIOLOGY WILL CALL PATIENT WITH AN APPOINTMENT) Iam Walker CNP [Advanced Practice Nurse] - 01/17/17 10:20 am NONE,PCP [Primary Care Provider] -
[2017-01-12] MEDS: Metoprolol XL (24 HR) Succ 25 MG TAB.ER.24H PO SCH (12:11)
--- NOTE | 2017-01-12 14:03 | Electrocardiograph Report ---
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
--- NOTE | 2017-01-12 15:17 | Electrocardiograph Report ---
[place] [id number] Test Date: 2017-01-11 Pat Name: Merced Rodriguez Department: 110 Room: 2N07 Gender: F Media Planner: LARON : 1955 Requested By: Latonia Lee Order Number: [id number] Reading MD: Diego Joseph MD Measurements Intervals [place] Rate: 79 P: 183 RI: 121 QRS: -52 QRSD: 102 T: -54 QT: 445 QTc: 480 Interpretive Statements SINUS RHYTHM LEFT ATRIAL ENLARGEMENT INFERIOR MYOCARDIAL INFARCTION, OF INDETERMINATE AGE Electronically Signed On 01-12-2017 15:15:24 EDT by Diego Joseph MD
--- NOTE | 2017-01-12 17:18 | Internal Med Progress Note ---
Date of Encounter: 01/12/17 Time of Encounter: 08:35 - Assessment and plan (1) STEMI (ST elevation myocardial infarction) Current Visit: Yes Status: Acute Assessment and plan: -STEMI noted on initial EKG from [place] - ST elevation in leads II, III, and aVF. -Troponin - 0.35. -S/P LHC yesterday - Triple vessel CAD. Moderate segmental LV dysfunction EF 40% , successful PTCA/LATISHA distal RCA, MID LAD. Successful PTCA of diag 1. -Needs staged PCI of OM as outpt -DAPT (ASA and Plavix) uninterrupted x 1 year. Continue Statin Continue metoprolol and lisinopril when blood pressure permits Echocardiogram - pending Anticipate discharge home in a.m. Qualifiers: Involved coronary artery: right coronary artery Qualified Code(s): I21.11 - ST elevation (STEMI) myocardial infarction involving right coronary artery (2) Ischemic cardiomyopathy Current Visit: Yes Status: Acute Assessment and plan: LVEF 40% seen during LHC - in the setting of STEMI Echocardiogram pending (3) Fibromyalgia Current Visit: Yes Status: Chronic - Time Spent With Patient 25 - 35 minutes - Subjective Interval history: Examined this morning. Patient is awake and alert. Not in any distress. Denies chest pain or shortness of breath. Patient admitted for STEMI. Patient underwent LHC yesterday with successful PTCA/LATISHA placement in the distal RCA, mid LAD and diagonal 1. LVEF 40%. Right femoral cath site looks okay. Distal pulses palpable. Hemodynamically stable. Patient will need to be continued on dual antiplatelet therapy. Anticipate discharge in a.m. - Constitutional Vitals: Temp Pulse Resp BP Pulse Ox 97.9 F 94 16 120/68 97 01/12/17 15:15 01/12/17 15:15 01/12/17 15:15 01/12/17 15:15 01/12/17 15:15 General appearance: Present: A&O X 3, pleasant, no acute distress, answers questions appropriately - Head Head exam: Present: atraumatic - Eye Eye exam: Present: EOMI - ENT ENT exam: Present: mucous membranes moist - Neck Neck exam general surgery: Present: supple - Respiratory Respiratory exam: Present: CTAB. Absent: rales, rhonchi, wheezes, tachypnea - Cardiovascular Cardiovascular exam: Present: RRR, +S1, +S2 - GI/Abdominal GI/Abdominal exam: Present: soft. Absent: distended, firm, guarding, tenderness - Extremities Exam Extremities exam: Present: radial pulses palpable and symmetrical. Absent: cyanotic, pedal edema Additional comments: Right femoral cath site looks okay, distal pulses palpable - Neurological Exam Neurological exam: Present: alert, oriented X3, no focal deficits. Absent: facial droop, speech deficit Internal Medicine: Result - Labs CBC & Chem 7: 01/12/17 03:21 01/12/17 03:21 Labs: Short CBC 01/12/17 Range/Units 03:21 WBC 13.5 H (4.3-11.1) K/mcL Hgb 12.8 D (11.5-15.4) g/dL Hct 39.0 (35.3-44.9) % Plt Count 239 (140-400) K/mcL Neutrophils # 11.7 H (1.6-8.9) K/mcL BMP 01/12/17 03:21 Sodium 139 Potassium 3.6 Chloride 108 Carbon Dioxide 24 BUN 13 Creatinine 0.75 Glucose 151 H Calcium 8.9 - ABG Interpretation ABG results: PT/INR, D-dimer PT 13.0 Seconds (9.4-12.1) H 01/11/17 11:22 - VTE Reasons for not Prescribing Prophylaxis: Not indicated-Anticoagulated or INR therapeutic Consult Discharge Plan - Plan Referrals: Zoey Arthur MD [Non-Partnered Physician] - Nelly Pattno CNP [Partnered Physician] - (CARDIOLOGY WILL CALL PATIENT WITH AN APPOINTMENT) Iam Walker CNP [Advanced Practice Nurse] - 01/17/17 10:20 am NONE,PCP [Primary Care Provider] -
[2017-01-13] MEDS: Aspirin Enteric Coated 81 MG Tablet PO SCH (08:33)
[2017-01-13] MEDS: Metoprolol XL (24 HR) Succ 25 MG TAB.ER.24H PO SCH (08:33)
[2017-01-13 12:08] VITALS: BP 114/67
--- NOTE | 2017-01-13 12:25 | Discharge Summary ---
Date of Encounter: 01/13/17 Time of Encounter: 08:30 - Discharge Diagnosis (1) STEMI (ST elevation myocardial infarction) Priority: Primary Status: Acute Comments: -STEMI noted on initial EKG from [place] - ST elevation in leads II, III, and aVF. -Troponin - 0.35. -S/P [facility] - Triple vessel CAD. Moderate segmental LV dysfunction EF 40%, successful PTCA/LATISHA distal RCA, MID LAD. Successful PTCA of diag 1. -Needs staged PCI of OM as outpt -DAPT (ASA and Plavix) uninterrupted x 1 year. Continue Statin Continue metoprolol and lisinopril when blood pressure permits Echocardiogram - LVEF 60%, normal LV diastolic function, normal RV size and function Discharge home today, follow up with PCP and cardiology as outpatient Patient will need to return for PCI of OM as outpatient Qualifiers: Involved coronary artery: right coronary artery Qualified Code(s): I21.11 - ST elevation (STEMI) myocardial infarction involving right coronary artery (2) Ischemic cardiomyopathy Priority: Primary Status: Acute Comments: LVEF 40% seen during [facility] - in the setting of STEMI Echocardiogram - LVEF 60% with normal diastolic function, normal RV size and function Continue current meds (3) Fibromyalgia Priority: Secondary Status: Chronic - Discharge Medications Prescriptions: Nitroglycerin 0.4 mg SL Q5MIN PRN #20 PRN Reason: Chest Pain Aspirin Enteric Coated [Aspirin EC] 81 mg PO DAILY #30 Atorvastatin [Lipitor] 80 mg PO HS #30 tab Clopidogrel [Plavix] 75 mg PO DAILY #30 tab Lisinopril [Zestril] 2.5 mg PO DAILY #30 tab Metoprolol XL (24 HR) Succ [Toprol Xl] 12.5 mg PO DAILY #30 Home Medications: Amitriptyline [Elavil] 10 mg PO HS 01/11/17 [History] Amitriptyline [Elavil] 25 mg PO HS 01/11/17 [History] Aspirin Enteric Coated [Aspirin EC] 81 mg PO DAILY #30 01/13/17 [Rx] Atorvastatin [Lipitor] 80 mg PO HS #30 tab 01/13/17 [Rx] Clopidogrel [Plavix] 75 mg PO DAILY #30 tab 01/13/17 [Rx] Lisinopril [Zestril] 2.5 mg PO DAILY #30 tab 01/13/17 [Rx] Metoprolol XL (24 HR) Succ [Toprol Xl] 12.5 mg PO DAILY #30 01/13/17 [Rx] Nitroglycerin 0.4 mg SL Q5MIN PRN #20 01/13/17 [Rx] Allergies/Adverse Reactions: 3 Allergy/AdvReac Type Severity Reaction Status Date / Time Iodinated Contrast- Oral and Allergy Hives Verified 01/11/17 03:51 IV Dye Procedures/tests Complete & Pending: Procedures Performed prior 72 hours Category Date Time Status CL Cardiac Catheterization [CL] Routine Massotherapist 01/11/17 10:40 Completed ECG 12 lead ECG [ECG] Routine Y 01/11/17 10:10 Completed ECG 12 lead ECG [ECG] Routine Y 01/11/17 20:25 Completed ECG 12 lead ECG [ECG] Stat Y 01/11/17 16:11 Completed EKG [ECG 12 lead ECG] [ECG] Stat Y 01/11/17 09:50 Completed EV echocardiogram Routine Y 01/12/17 10:45 Completed Date of admission: 01/11/17 10:28 Primary care physician: PCP NONE Consults: 01/11/17 10:30 Consult to Physician [CONS] Routine Consulting Provider: Austen Willett Reason for Consult: Acute [place] Time Notified: 10:15 Call Completed: Yes 01/11/17 11:23 Consult to Cardiac Rehabilitation-Phase1 [CONS] Routine Comment: Reason for Consult: STEMI Call Completed: No Anticipated date of discharge: 01/13/17 - Patient Status Disposition: Home, Self-Care Condition: Good Functional capacity at discharge: independent ambulation Overall status at discharge: patient is progressing back to baseline - Discharge Instructions Instructions: Metoprolol (By mouth), Nitroglycerin (By mouth), Lisinopril (By mouth), Aspirin (By mouth), Atorvastatin (By mouth), Clopidogrel (By mouth), Myocardial Infarction (DC), Heart Healthy Diet (DC) Follow Up With: Nelly Patton CNP [Partnered Physician] - (CARDIOLOGY WILL CALL PATIENT WITH AN APPOINTMENT) Iam Walker CNP [Advanced Practice Nurse] - 01/17/17 10:20 am Additional Instructions: RISK FACTORS: STOP SMOKING: If you smoke, STOP. Smoking or tobacco use significantly increases your risk of heart disease because nicotine causes the arteries to narrow or constrict. It also causes fats to stick to the artery. Your chances of having a heart attack are greatly increased if you continue to smoke. For more information, call the education line for smoking cessation 7-318-AMICKPX EAT A LOW FAT/CHOLESTEROL/SODIUM DIET: This diet may help reduce your chances of having a heart attack. LIFTING: Avoid lifting anything more than 10 pounds for 5-7 days Prior to straining, laughing, sneezing and/or coughing, apply manual pressure directly over insertion site. ACTIVITY: You may walk or climb stairs as tolerated You can resume sexual activity as tolerated In general, you are encouraged to engage in a minimum of 30 minutes or more of moderate intensity physical activity, such as brisk walking, daily or at least 3 -4 times weekly BATHING Do not submerge the site into water (bath tub, hot tub, swimming pool) for 1 week. This can be a source for infection into the blood stream. You may shower after 24 hours SITE CARE: After 24 hours, you may remove the dressing and leave the site open to air. Keep the site clean and dry. Clean gently and pat dry. You can expect bruising and tenderness that gradually resolve within a week or two. Return to work as instructed per your physician Resume driving as instructed per physician Keep all scheduled follow up appointments Resume medications as instructed IMPORTANT: If prescribed a Platelet Aggregation Inhibitor such as, Plavix, Brilinta or Effient: Duration of therapy is minimum one year These medications are often used in combination with Aspirin in prevention of future heart attacks Never discontinue unless consult with your Registered Art Therapist STROKE (CVA) Risk factors for a stroke are: Age, cigarette smoking, diabetes, excessive alcohol consumption, family history, high blood pressure, overweight, physical inactivity, prior stroke, heart attack, diagnosis of carotid artery stenosis or other artery disease. Warning signs: Sudden numbness or weakness of the face, arm or leg; especially on one side of the body, sudden confusion, trouble speaking or understanding, sudden trouble seeing in one or both eyes, sudden trouble walking, dizziness, loss of balance or coordination, sudden severe headache with no cause. Call 911 or go to the Emergency Room. CONGESTIVE HEART FAILURE: If you have been diagnosed with Congestive Heart Failure (CHF) and your symptoms return, make an appointment with your physician Weigh yourself daily. Notify your physician if you have a weight gain of two or more pounds in one day or five or more pounds in one week. If you experience any difficulty breathing, please call 911 BLEEDING: Although the risk of bleeding is minimal, it can happen. If you have any bleeding from the site, apply firm pressure above the puncture site for 10-15 minutes. If the bleeding does not stop, continue manual pressure and call 911 Contact your physician if: You develop a fever greater than 101 degrees Fahrenheit Your site becomes reddened or has any drainage You have an increase in pain or burning at the site or if a large knot forms at the site. If you experience chest pain, shortness of breath, dizziness, or extreme tiredness, stop the activity and rest. Please notify your physicians office if you experience any of these symptoms and they are not relieved by rest please call 911! - Diet and Activity Activity: increase activity as tolerated Diet: low fat, low cholesterol Hospital course: Ms. Rodriguez is a 62 year old female with past medical history of fibromyalgia. Patient presented to the ED after [place] with weakness and arm tingling. Patient also stated that she has been more dyspneic over the past 5 days prior to admission. Patient apparently became bradycardic in the ED and hypotensive. Initial troponin was 0.04. Repeat troponin was 0.35. EKGs revealed subtle ST elevation in the inferior leads. Cardiology evaluated the patient immediately. Patient was given loading dose of aspirin. Left heart catheterization was done. Patient had triple-vessel coronary artery disease. She had successful PTCA and drug-eluting stent placement in the distal RCA and mid LAD. She had successful PTCA of diagonal 1. Patient will require a staged PCI of OM1. Patient tolerated procedure well. She is now on aspirin and atorvastatin and Plavix. She has also been started on low-dose lisinopril and metoprolol. Patient was initially found to have ischemic cardiomyopathy in the setting of acute STEMI. Repeat echocardiogram revealed LVEF 60% with normal function and size of LV. Patient did not have any other acute events or complications during her stay in the hospital. Patient and family members have been explained about her condition and plan of care in detail. They understood and agreed. No one answered questions. Patient will follow up with primary care physician and cardiology as outpatient. Patient states she feels better and wants to go home. She is being discharged in a stable condition. - Time Spent with Patient Total time spent providing and/or coordinating discharge services: Greater than 30 minutes - Constitutional Vitals: Temp Pulse Resp BP Pulse Ox 98.0 F 82 15 114/67 99 01/13/17 12:05 01/13/17 12:06 01/13/17 12:05 01/13/17 12:05 01/13/17 12:05 General appearance: Present: A&O X 3, pleasant, no acute distress, answers questions appropriately - Head Head exam: Present: atraumatic - Eye Eye exam: Present: EOMI - ENT ENT exam: Present: mucous membranes moist - Neck Neck exam general surgery: Present: supple - Respiratory Respiratory exam: Present: CTAB. Absent: rales, rhonchi, wheezes, tachypnea - Cardiovascular Cardiovascular exam: Present: RRR, +S1, +S2 - GI/Abdominal GI/Abdominal exam: Present: soft. Absent: distended, firm, guarding, tenderness - Extremities Exam Extremities exam: Present: radial pulses palpable and symmetrical. Absent: cyanotic, pedal edema - Neurological Exam Neurological exam: Present: alert, oriented X3, no focal deficits - VTE Reasons for not Prescribing Prophylaxis: Not indicated-Anticoagulated or INR therapeutic
--- NOTE | 2017-01-13 13:35 | Cardiology Progress Note ---
Date of Encounter: 01/13/17 Time of Encounter: 13:32 Assessment and Plan (1) STEMI (ST elevation myocardial infarction) Status: Acute Per cardiology: -STEMI noted on initial ECG from [place] with ST elevation in leads II, III, and aVF. -Troponin 0.03, 0.36. -S/P [facility] 12/11/16 revealed acute LA due to acute thrombotic occlusion of distal RCA. Triple vessel CAD. Moderate segmental LV dysfunction EF 40%. Pt had successful PTCA/LATISHA in distal RCA and mid LAD. Successful PTCA of diag 1. -Needs staged PCI of OM as outpt. -Echo revealed EF 60%, there is moderate mitral regurgitation. -DAPT (ASA and Plavix) uninterrupted x 1 year. Pt verbalizes understanding. Continue Statin and bb. B/p improved from yesterday. Carvedilol changed to lopressor. NTG use, indication, and SE reviewed. Recommend NTG RX at discharge. -Pt denies chest pain or dyspnea overnight. -Right femoral access site healing well. No bleeding, hematoma or ecchymosis noted. -Okay for discharge from cardiac standpoint. Out patient f/u will be made by [facility]. Call with questions. Qualifiers: Involved coronary artery: right coronary artery Qualified Code(s): I21.11 - ST elevation (STEMI) myocardial infarction involving right coronary artery (2) CAD (coronary artery disease) Status: Acute As above, S/P STEMI and LATISHA to distal RCA and mid LAD, PTCA to diag 1. Needs staged PCI of OM as outpt. ASA, Plavix, Statin, BB. NTG SL PRN chest pain. Qualifiers: Coronary Disease-Associated Artery/Lesion type: [place] artery [place] vs. transplanted heart: [place] heart Associated angina: without angina Qualified Code(s): I25.10 - Atherosclerotic heart disease of [place] coronary artery without angina pectoris Discussion w patient/family: The assessment and plan as outlined above was discussed with the patient and/or family members who expressed understanding and agreement. All questions were answered. Thank you for involving us in the care of your patient. Please call with any questions. Subjective Principal diagnosis: STEMI, CAD Interval history: denies chest pain. Sitting in her room conversing with family and friends. Patient had multiple questions that were answered. Objective Vital Signs, Last 4 Hours Temp Pulse Resp BP Pulse Ox 08/17/17 12:06 82 01/13/17 12:05 98.0 F 80 15 114/67 99 General: Conversant, No Apparent Distress HEENT: Atraumatic, Normocephaly, Mucus Membranes Moist Neck: No JVD, Normal carotid pulses Cardiac: Reg Rate and Rhythm, Normal S1 and S2, No Murmur Lungs: Normal Breath Sounds, No Wheeze, Rales, Rhonchi Neuro: Alert and responsive, No focal deficits noted Abdomen: Soft, Non-Tender Skin: No rashes noted on visualized skin Musculoskeletal: No Chest Wall Tenderness Extremities: No Clubbing, No Cyanosis, No Edema, Normal Pulses, Other (Right groin without hematoma. ) Results 01/12/17 03:21 01/12/17 03:21 - Imaging and Cardiology Echo: report reviewed Cardiac cath: report reviewed - EKG Interpretation EKG results cardiology: personally reviewed - VTE Reasons for not Prescribing Prophylaxis: Not indicated-Anticoagulated or INR therapeutic Consult Discharge Plan - Plan Instructions: Metoprolol (By mouth), Nitroglycerin (By mouth), Lisinopril (By mouth), Aspirin (By mouth), Atorvastatin (By mouth), Clopidogrel (By mouth), Myocardial Infarction (DC), Heart Healthy Diet (DC) Additional Instructions: RISK FACTORS: STOP SMOKING: If you smoke, STOP. Smoking or tobacco use significantly increases your risk of heart disease because nicotine causes the arteries to narrow or constrict. It also causes fats to stick to the artery. Your chances of having a heart attack are greatly increased if you continue to smoke. For more information, call the education line for smoking cessation 8-408-ERFIVGU EAT A LOW FAT/CHOLESTEROL/SODIUM DIET: This diet may help reduce your chances of having a heart attack. LIFTING: Avoid lifting anything more than 10 pounds for 5-7 days Prior to straining, laughing, sneezing and/or coughing, apply manual pressure directly over insertion site. ACTIVITY: You may walk or climb stairs as tolerated You can resume sexual activity as tolerated In general, you are encouraged to engage in a minimum of 30 minutes or more of moderate intensity physical activity, such as brisk walking, daily or at least 3 -4 times weekly BATHING Do not submerge the site into water (bath tub, hot tub, swimming pool) for 1 week. This can be a source for infection into the blood stream. You may shower after 24 hours SITE CARE: After 24 hours, you may remove the dressing and leave the site open to air. Keep the site clean and dry. Clean gently and pat dry. You can expect bruising and tenderness that gradually resolve within a week or two. Return to work as instructed per your physician Resume driving as instructed per physician Keep all scheduled follow up appointments Resume medications as instructed IMPORTANT: If prescribed a Platelet Aggregation Inhibitor such as, Plavix, Brilinta or Effient: Duration of therapy is minimum one year These medications are often used in combination with Aspirin in prevention of future heart attacks Never discontinue unless consult with your Cattle [employer] STROKE (CVA) Risk factors for a stroke are: Age, cigarette smoking, diabetes, excessive alcohol consumption, family history, high blood pressure, overweight, physical inactivity, prior stroke, heart attack, diagnosis of carotid artery stenosis or other artery disease. Warning signs: Sudden numbness or weakness of the face, arm or leg; especially on one side of the body, sudden confusion, trouble speaking or understanding, sudden trouble seeing in one or both eyes, sudden trouble walking, dizziness, loss of balance or coordination, sudden severe headache with no cause. Call 911 or go to the Emergency Room. CONGESTIVE HEART FAILURE: If you have been diagnosed with Congestive Heart Failure (CHF) and your symptoms return, make an appointment with your physician Weigh yourself daily. Notify your physician if you have a weight gain of two or more pounds in one day or five or more pounds in one week. If you experience any difficulty breathing, please call 911 BLEEDING: Although the risk of bleeding is minimal, it can happen. If you have any bleeding from the site, apply firm pressure above the puncture site for 10-15 minutes. If the bleeding does not stop, continue manual pressure and call 911 Contact your physician if: You develop a fever greater than 101 degrees Fahrenheit Your site becomes reddened or has any drainage You have an increase in pain or burning at the site or if a large knot forms at the site. If you experience chest pain, shortness of breath, dizziness, or extreme tiredness, stop the activity and rest. Please notify your physicians office if you experience any of these symptoms and they are not relieved by rest please call 911! Referrals: Nelly Patton CNP [Partnered Physician] - (CARDIOLOGY WILL CALL PATIENT WITH AN APPOINTMENT) Iam Walker CNP [Advanced Practice Nurse] - 01/17/17 10:20 am Prescriptions: Nitroglycerin 0.4 mg SL Q5MIN PRN #20 PRN Reason: Chest Pain Aspirin Enteric Coated [Aspirin EC] 81 mg PO DAILY #30 Atorvastatin [Lipitor] 80 mg PO HS #30 tab Clopidogrel [Plavix] 75 mg PO DAILY #30 tab Lisinopril [Zestril] 2.5 mg PO DAILY #30 tab Metoprolol XL (24 HR) Succ [Toprol Xl] 12.5 mg PO DAILY #30
--- NOTE | 2017-01-13 14:42 | Electrocardiograph Report ---
[place] [id number] Test Date: 2017-01-11 Pat Name: Merced Rodriguez Department: 110 Room: 2N07 Gender: F [employer]rain [employer]or: : 1955 Requested By: Latonia Lee Order Number: [id number] Reading MD: Diego Joseph MD Measurements Intervals [place] Rate: 75 P: 50 CT: 128 QRS: 23 QRSD: 101 T: -27 QT: 378 QTc: 408 Interpretive Statements SINUS RHYTHM POSSIBLE INFERIOR MYOCARDIAL INFARCTION, OF INDETERMINATE AGE Electronically Signed On 01-13-2017 14:40:13 EDT by Diego Joseph MD
== END 2017-01-13 13:48 | disposition home or self-care (01) | DRG 247 ==
LOC: 2NNU
PROVIDERS: ADMIT Internal Medicine; ATTEND Family Medicine

== ENCOUNTER 2017-05-15 18:33 | Observation (INO) ==
--- NOTE | 2017-05-15 20:22 | Internal Med History&Physical ---
Date of Encounter: 05/15/17 Time of Encounter: 20:17 Assessment and Plan (1) GERD (gastroesophageal reflux disease) Current visit: Yes Status: Chronic resume home meds Qualifiers: Esophagitis presence: without esophagitis Qualified Code(s): K21.9 - Gastro -esophageal reflux disease without esophagitis (2) HTN (hypertension) Current visit: Yes Status: Chronic controlled Qualifiers: Hypertension type: essential hypertension Qualified Code(s): I10 - Essential (primary) hypertension (3) Fibromyalgia Current visit: No Status: Chronic resume home meds (4) CAD (coronary artery disease) Current visit: No Status: Chronic recent 3 stents placed Qualifiers: Coronary Disease-Associated Artery/Lesion type: [place] artery [place] vs. transplanted heart: [place] heart Associated angina: without angina Qualified Code(s): I25.10 - Atherosclerotic heart disease of [place] coronary artery without angina pectoris (5) Chest pain Current visit: No Status: Acute chest pain tropoin negative will trend troponin and consult cardiology Qualifiers: Chest pain type: other chest pain Qualified Code(s): R07.89 - Other chest pain; R07.8 - Other chest pain Internal Medicine - H&P: HPI Chief complaint: chest pain Admitted From: Intrahospital Transfer Plans for Post Hospital Care: Home History of present illness: Ms. Rodriguez is a 62 year old female Patient transfer from [facility] emergency room due to chest pain. Patient had history of CAD had 3 stent put in recently in December 28 to the LAD and RCA and then she came back on January 14 with acute inferior wall mi ( stemi) underwent cath and intervention of OM with drug-eluting stent to the obtuse marginal vessel. Patient also history of fibromyalgia, GERD, anxiety, patient present to the emergency room at [facility] with chest pain described as discomfort , mild nausea similar to prior cardiac event chest pain that required angioplasty. SHe has some episode yesterday but today chest has been persistent for now about 8 hours. Has some minor EKG changes ., The ER discussed with Dr. Polo and patient was just started on heparin and then transferred here for further evaluation. Past Med Surg Social Fam HX - Past Medical History Medical history: GERD, myocardial infarction Psychiatric history: anxiety - Past Surgical History Surgical History: angioplasty/stent, breast surgery, cholecystectomy - Social History Smoking Status: Never smoker Smokeless Tobacco Status: No Alcohol use: none Drug use: none - Family History Mother Living Status: Still Living Hx Family Cardiac Disorders: Yes (IN,CABG,CHF) Hx Family Respiratory Disorders: Yes (COPD) Hx Family Cancer: Yes Hx Family GI Disorders: No Hx Family Endocrine Disorder: No Hx Family Neuromuscular Disorders: No Hx Family Neurologic Disorders: No Hx Family HEENT Disorders: No Hx Family Autoimmune Disorders: No Father Living Status: Hx Family Cardiac Disorders: Yes (chf, CABG) Hx Family Respiratory Disorders: No Hx Family Cancer: No Hx Family GI Disorders: No Hx Family Endocrine Disorder: No Hx Family Neuromuscular Disorders: No Hx Family Neurologic Disorders: No Hx Family HEENT Disorders: No Hx Family Autoimmune Disorders: No Internal Medicine - H&P: Meds Aspirin Enteric Coated [Aspirin EC] 81 mg PO DAILY #30 01/13/17 [Rx] Clopidogrel [Plavix] 75 mg PO DAILY #30 tab 01/13/17 [Rx] Nitroglycerin 0.4 mg SL Q5MIN PRN #20 01/13/17 [Rx] Famotidine [Pepcid] 20 mg PO BID 03/09/17 [History] Carvedilol [Coreg] 3.125 mg PO BIDWM 04/18/17 [History] Rosuvastatin Calcium [Crestor] 40 mg PO HS 04/18/17 [History] 3 Allergy/AdvReac Type Severity Reaction Status Date / Time Iodinated Contrast- Oral and Allergy Hives Verified 04/19/17 14:19 IV Dye All Systems PM: A 10-system review of systems was performed and is negative for pertinent findings except as documented above in the HPI. - Constitutional Constitutional: no chills, no fever(s), no night sweats - EENT Eyes: no change in vision, no discharge, no pain, no photophobia Ears: no ear discharge, no ear pain, no tinnitus Nose, mouth and throat: no dysphagia, no nasal discharge, no neck pain, no sore throat - Cardiovascular Cardiovascular ROS IM: chest pain - Respiratory Respiratory: no cough, no dyspnea, no wheezing, no excessive phlegm production - Gastrointestinal Gastrointestinal: nausea - Genitourinary Genitourinary: no change in urinary stream, no dysuria, no flank pain, no hematuria - Musculoskeletal Musculoskeletal ROS IM: no numbness, no tingling - Integumentary Integumentary IM: no rash, no unusual bruising - Neurological Neurological ROS: no confusion, no convulsions, no focal weakness, no numbness, no tingling, no tremor(s) - Constitutional Vitals: Temp Pulse Resp BP Pulse Ox 98.0 F 91 15 107/70 98 05/15/17 19:59 05/15/17 19:59 05/15/17 19:59 05/15/17 19:59 05/15/17 19:59 - Eye Eye exam: Present: PERRL, conjuntiva pink, sclera anicteric Pupils: Present: PERRL - Neck Neck exam general surgery: Present: supple, trachea midline. Absent: lymphadenopathy - Respiratory Respiratory exam: Present: CTAB. Absent: accessory muscle use, rales, rhonchi, wheezes - Cardiovascular Cardiovascular exam: Present: RRR, +S1, +S2. Absent: diastolic murmur, gallop, rubs, systolic murmur - GI/Abdominal GI/Abdominal exam: Present: normal bowel sounds, soft, no peritoneal signs. Absent: distended, tenderness - Extremities Exam Extremities exam: Present: warm, radial pulses palpable and symmetrical. Absent : calf tenderness, cyanotic, pedal edema
[2017-05-15] MEDS ORDERED: Acetaminophen 325 MG TABLET PO PRN (20:27)
[2017-05-15] MEDS ORDERED: Naloxone 0.4 MG/ML INJ IVP PRN (20:27)
[2017-05-15] MEDS ORDERED: Ondansetron 4 MG/2 ML VIAL IVP PRN (20:27)
[2017-05-15] MEDS ORDERED: *HR* Morphine 2 MG/ML SYRINGE IVP PRN (20:27)
[2017-05-15] MEDS ORDERED: Nitroglycerin 0.4 MG TAB.SUBL SL PRN (20:29)
[2017-05-16] MEDS ORDERED: *HR* Heparin 5,000 UNIT/ML VIAL IVP PRN ×2 (00:53)
[2017-05-16] MEDS ORDERED: Heparin 25,000 UNIT/500 ML D5W 25,000 UNIT/500 ML BAG IVC SCH (01:00)
[2017-05-16 01:35] LABS: Activated Partial Thrombo Time 115.2 Seconds (26.0-36.0)
[2017-05-16 01:40] LABS: Heparin anti-factor XA UFH 0.81 IU/mL (0.30-0.70)
[2017-05-16 03:55] LABS: Hematocrit 38.1 % (35.3-44.9); Hemoglobin 12.6 g/dL (11.5-15.4); Hemoglobin 12.7 g/dL (11.5-15.4); Mean Corpuscular HGB Conc 33.1 g/dL (31.6-35.5); Mean Corpuscular HGB Conc 33.3 g/dL (31.6-35.5); Mean Corpuscular Hemoglobin 29.4 pg (28.0-33.3); Mean Corpuscular Hemoglobin 29.5 pg (28.0-33.3); Mean Corpuscular Volume 88.4 fL (83.0-100.0); Mean Platelet Volume 10.6 fL (9.4-12.4); Mean Platelet Volume 10.8 fL (9.4-12.4); Platelet Count 238 K/mcL (140-400); Platelet Count 245 K/mcL (140-400); Red Blood Count 4.28 M/mcL (3.82-4.97); Red Blood Count 4.31 M/mcL (3.82-4.97); Red Cell Distribution Width 12.6 % (11.5-14.5); Red Cell Distribution Width 12.8 % (11.5-14.5)
[2017-05-16 04:01] LABS: INR 1.2; Prothrombin Time 12.7 Seconds (9.4-12.1)
[2017-05-16 04:11] LABS: Chol/HDL Ratio 2.1 (0-4.9); Magnesium 2.1 mg/dL (1.6-2.6)
[2017-05-16] MEDS: Famotidine 20 MG TABLET PO SCH ×2 (08:12→16:32)
[2017-05-16] MEDS: Aspirin Enteric Coated 81 MG Tablet PO SCH (08:13)
--- NOTE | 2017-05-16 10:29 | Cardiology Consult Note ---
<Aneudy Metcalf - Last Filed: 05/16/17 14:01> Date of Encounter: 05/16/17 Time of Encounter: 09:00 Assessment and Plan (1) Chest pain Current Visit: Yes Status: Acute Initially presented with chest pain of 8 hours duration. -Initial troponin was negative; repeat troponin was 0.01. -Currently NPO; Patient will go for cardiac catheterization. -Currently on heparin drip. -Continuous cardiac monitoring. Qualifiers: Qualified Code(s): R07.9 - Chest pain, unspecified (2) CAD (coronary artery disease) Current Visit: No Status: Chronic S/P placement of 3 stents. -ASA 81 mg PO daily -Plavix 75 mg PO daily -Coreg 3.125 mg PO BID WM -Crestor 40 mg PO HS Qualifiers: Coronary Disease-Associated Artery/Lesion type: [place] artery [place] vs. transplanted heart: [place] heart Associated angina: without angina Qualified Code(s): I25.10 - Atherosclerotic heart disease of [place] coronary artery without angina pectoris (3) HTN (hypertension) Current Visit: Yes Status: Chronic Last BP was 105/68 Qualifiers: Hypertension type: essential hypertension Qualified Code(s): I10 - Essential (primary) hypertension Discussion w patient/family: The assessment and plan as outlined above was discussed with the patient and/or family members who expressed understanding and agreement. All questions were answered. Thank you for involving us in the care of your patient. Please call with any questions. History of Present Illness Consult date: 05/16/18 Chief complaint: Chest discomfort History of present illness: Ms. Rodriguez is a 62 year old female with a PMH of fibromyalgia who presented with the chief complaint of chest pain. Patient is a transfer from [facility] ED. Patient had history of CAD; had 3 stent put in recently in December 28 to the LAD and RCA and then she came back on January 14 with acute inferior wall LA (STEMI) underwent cath; drug-eluting stent to the obtuse marginal vessel. Patient states that she has been compliant with Plavix and all other medications. On presentation, her chest pain was described as discomfort with mild nausea similar to prior cardiac event. Episode lasted approximately 8 hours. EKG demonstrated borderline left axis deviation and poor R wave progression. Troponin was negative. Patient was seen and examined at bedside this morning. She reports that she is feeling well today. Denies having any chest discomfort, nausea, dizziness, or diaphoresis. No complaints at this time. Past Med Surg Social Fam HX - Past Medical History Medical history: GERD, myocardial infarction Psychiatric history: anxiety - Past Surgical History Surgical History: angioplasty/stent, breast surgery, cholecystectomy - Social History Smoking Status: Never smoker Smokeless Tobacco Status: No Alcohol use: none Drug use: none - Family History Mother Living Status: Still Living Hx Family Cardiac Disorders: Yes Hx Family Respiratory Disorders: Yes (COPD) Hx Family Cancer: Yes Hx Family GI Disorders: No Hx Family Endocrine Disorder: No Hx Family Neuromuscular Disorders: No Hx Family Neurologic Disorders: No Hx Family HEENT Disorders: No Hx Family Autoimmune Disorders: No Father Living Status: Hx Family Cardiac Disorders: Yes Hx Family Respiratory Disorders: No Hx Family Cancer: No Hx Family GI Disorders: No Hx Family Endocrine Disorder: No Hx Family Neuromuscular Disorders: No Hx Family Neurologic Disorders: No Hx Family HEENT Disorders: No Hx Family Autoimmune Disorders: No Medications and Allergies Aspirin Enteric Coated [Aspirin EC] 81 mg PO DAILY #30 01/13/17 [Rx] Clopidogrel [Plavix] 75 mg PO DAILY #30 tab 01/13/17 [Rx] Nitroglycerin 0.4 mg SL Q5MIN PRN #20 01/13/17 [Rx] Famotidine [Pepcid] 20 mg PO BID 03/09/17 [History] Carvedilol [Coreg] 3.125 mg PO BIDWM 04/18/17 [History] Rosuvastatin Calcium [Crestor] 40 mg PO HS 04/18/17 [History] 3 Allergy/AdvReac Type Severity Reaction Status Date / Time Iodinated Contrast- Oral and Allergy Hives Verified 04/19/17 14:19 IV Dye All Systems Review: A 10-system review of systems was performed and is negative for pertinent findings except as documented above in the HPI. - Constitutional Constitutional: no chills, no fever(s) - Cardiovascular Cardiovascular: no chest pain at rest, no chest pain with exertion, no dyspnea at rest, no dyspnea on exertion, no irregular heart rhythm, no lightheadedness, no palpitations - Respiratory Respiratory: no cough, no dyspnea - Gastrointestinal Gastrointestinal: no abdominal pain - Neurological Neurological: no dizziness, no syncope Physical Examination Vital Signs, Last 4 Hours Temp Pulse Resp BP Pulse Ox 05/16/17 07:16 97.5 F L 80 20 105/68 96 General: Conversant, No Apparent Distress Neck: No JVD, Normal carotid pulses Cardiac: Reg Rate and Rhythm, Normal S1 and S2 Extremities: No Edema, Normal Pulses Results 05/16/17 03:46 Lab Results 05/15/17 05/16/17 05/16/17 21:29 00:13 03:46 WBC Hgb Hct Plt Count INR APTT 115.2 H* D Magnesium Troponin I 0.00 0.01 B-Natriuretic Peptide 05/16/17 05/16/17 05/16/17 03:46 03:46 03:46 WBC 9.7 Hgb 12.6 Hct 38.1 Plt Count 238 INR APTT Magnesium 2.1 Troponin I B-Natriuretic Peptide 14 05/16/17 05/16/17 05/16/17 03:46 03:46 08:49 WBC 9.3 Hgb 12.7 Hct 38.1 Plt Count 245 INR 1.2 APTT 56.4 H D Magnesium Troponin I B-Natriuretic Peptide 05/16/17 09:13 WBC Hgb Hct Plt Count INR APTT Magnesium Troponin I 0.01 B-Natriuretic Peptide Consult Discharge Plan - Plan Referrals: Zoey Arthur MD [Primary Care Provider] - <JoLilo - Last Filed: 05/16/17 14:44> Date of Encounter: 05/16/17 - Attending Attestation I examined this patient and my medical decision-making was reviewed with the Resident Physician. I agree with the documented findings, disposition and treatment plan. Ms. Rodriguez has a history of CAD having presented with a STEMI in December of 2016 requiring staged PCI. She developed significant fatigue this past Tuesday and could barely make it through cardiac rehab. She subsequently developed chest discomfort and symptoms similar to those she felt in December at time of PCI. Her cardiac biomarkers have been negative x3 and there may be subtle ECG changes in lead V6 only which is not diagnostic for ischemia. She also admits compliance with DAPT. However, given her presenting symptoms and known history of CAD, we are concerned for unstable angina. I discussed the R/B/A of proceeding with [facility]. The patient expressed understanding. She would like to proceed. Assessment and Plan Discussion w patient/family: The assessment and plan as outlined above was discussed with the patient and/or family members who expressed understanding and agreement. All questions were answered. Thank you for involving us in the care of your patient. Please call with any questions. History of Present Illness History of present illness: Ms. Rodriguez is a 62 year old female All Systems Review: A 10-system review of systems was performed and is negative for pertinent findings except as documented above in the HPI. Physical Examination Vital Signs, Last 4 Hours Temp Pulse Resp BP Pulse Ox 05/16/17 11:50 98.5 F 70 18 119/77 95 Results 05/16/17 03:46 Lab Results 05/15/17 05/16/17 05/16/17 21:29 00:13 03:46 WBC Hgb Hct Plt Count INR APTT 115.2 H* D Magnesium Troponin I 0.00 0.01 B-Natriuretic Peptide 05/16/17 05/16/17 05/16/17 03:46 03:46 03:46 WBC 9.7 Hgb 12.6 Hct 38.1 Plt Count 238 INR APTT Magnesium 2.1 Troponin I B-Natriuretic Peptide 14 05/16/17 05/16/17 05/16/17 03:46 03:46 08:49 WBC 9.3 Hgb 12.7 Hct 38.1 Plt Count 245 INR 1.2 APTT 56.4 H D Magnesium Troponin I B-Natriuretic Peptide 05/16/17 09:13 WBC Hgb Hct Plt Count INR APTT Magnesium Troponin I 0.01 B-Natriuretic Peptide
[2017-05-16] MEDS ORDERED: Heparin 1,000 UNIT, 0.9 % Sodium Chloride 500 ML INARTERIAL ONE (11:00)
--- NOTE | 2017-05-16 14:52 | Internal Med Progress Note ---
Date of Encounter: 05/16/17 Time of Encounter: 14:52 - Assessment and plan (1) Chest pain Current Visit: Yes Status: Acute Assessment and plan: For [facility] today, cardio is following Qualifiers: Chest pain type: unspecified Qualified Code(s): R07.9 - Chest pain, unspecified (2) Fibromyalgia Current Visit: Yes Status: Chronic Assessment and plan: Continue home meds (3) CAD (coronary artery disease) Status: Chronic Assessment and plan: Continue home meds Qualifiers: Coronary Disease-Associated Artery/Lesion type: [place] artery [place] vs. transplanted heart: [place] heart Associated angina: without angina Qualified Code(s): I25.10 - Atherosclerotic heart disease of [place] coronary artery without angina pectoris (4) GERD (gastroesophageal reflux disease) Current Visit: Yes Status: Chronic Assessment and plan: Continue home meds Qualifiers: Esophagitis presence: without esophagitis Qualified Code(s): K21.9 - Gastro -esophageal reflux disease without esophagitis (5) HTN (hypertension) Current Visit: Yes Status: Chronic Assessment and plan: Controlled, continue home meds Qualifiers: Hypertension type: essential hypertension Qualified Code(s): I10 - Essential (primary) hypertension - Subjective Interval history: Seen and evaluated at bedside with family No new complains - Constitutional Vitals: Temp Pulse Resp BP Pulse Ox 98.5 F 70 18 119/77 95 05/16/17 11:50 05/16/17 11:50 05/16/17 11:50 05/16/17 11:50 05/16/17 11:50 General appearance: Present: A&O X 3, pleasant, no acute distress - Head Head exam: Present: atraumatic, normocephalic - Eye Eye exam: Present: PERRL, conjuntiva pink, sclera anicteric Pupils: Present: PERRL - Neck Neck exam general surgery: Present: supple, trachea midline. Absent: lymphadenopathy - Respiratory Respiratory exam: Present: CTAB. Absent: accessory muscle use, rales, rhonchi, wheezes - Cardiovascular Cardiovascular exam: Present: RRR, +S1, +S2. Absent: diastolic murmur, gallop, rubs, systolic murmur - GI/Abdominal GI/Abdominal exam: Present: normal bowel sounds, soft, no peritoneal signs. Absent: distended, tenderness - Extremities Exam Extremities exam: Present: warm, radial pulses palpable and symmetrical. Absent : calf tenderness, cyanotic, pedal edema - Neurological Exam Neurological exam: Present: alert, CN II-XII intact, oriented X3, no focal deficits. Absent: pronater drift, facial droop, speech deficit - Skin Skin exam: Present: dry, intact Internal Medicine: Result - Labs CBC & Chem 7: 05/16/17 03:46 Labs: Short CBC 05/16/17 05/16/17 Range/Units 03:46 03:46 WBC 9.7 9.3 (4.3-11.1) K/mcL Hgb 12.6 12.7 (11.5-15.4) g/dL Hct 38.1 38.1 (35.3-44.9) % Plt Count 238 245 (140-400) K/mcL Cardiac Enzymes 05/15/17 05/16/17 05/16/17 Range/Units 21:29 03:46 09:13 Troponin I 0.00 0.01 0.01 (0-0.03) ng/mL - ABG Interpretation ABG results: PT/INR, D-dimer PT 12.7 Seconds (9.4-12.1) H 05/16/17 03:46 Consult Discharge Plan - Plan Referrals: Zoey Arthur MD [Primary Care Provider] -
--- NOTE | 2017-05-16 17:20 | Pre-Sedation Evaluation ---
Pre-sedation evaluation - Pre-sedation checklist Date of procedure: 05/16/17 Procedure: LHC/PCI CX Recent Vitals: Last Vital Signs Temp 97.9 F 05/16/17 15:08 Pulse 79 05/16/17 15:08 Resp 18 05/16/17 15:08 BP 115/74 05/16/17 15:08 Pulse Ox 95 05/16/17 15:08 H&P (including ROS) documented in medical record: Yes Previous reaction to sedatives/anesthetics: No Dietary Status: NPO after Midnight Dentition: No loose teeth or bridges ASA Classification *see protocol: CLASS II-Mild systemic disease Plan of Care: Pt appropriate candidate for procedure/moderate/conscious sedation
[2017-05-16] MEDS ORDERED: *HR* Midazolam HCl 2 MG/2 ML VIAL ONE (18:30)
[2017-05-16] MEDS ORDERED: 0.9 % Sodium Chloride 1,000 ML ONE ×2 (18:30→18:48)
[2017-05-16] MEDS ORDERED: *HR* FentaNYL (PF) 100 MCG/2 ML VIAL ONE (18:30)
[2017-05-16] MEDS ORDERED: Nitroglycerin 1,000 MCG/10 ML VIAL IV ONE (18:31)
[2017-05-16] MEDS ORDERED: *HR* Heparin 10,000 UNIT/10 ML VIAL ONE (18:31)
[2017-05-16] MEDS ORDERED: methylPREDNISolone 125 MG/2 ML VIAL ONE (18:45)
--- NOTE | 2017-05-16 19:19 | Invasive Diagnostic Lab Proc ---
Name: Merced Rodriguez Date of Study: 05/16/2017 Date: 1955 Ht: 61.8in Medical Record#: [id number] Age: 62 Wt: 176.37lb Gender: Female BSA: 1.81 Order #: [id number] BMI: 32.46 Physicians Procedure Physician: Saul Jimenez MD Referring MD: Zoey Arthur MD Referring MD: Staff Name Position Time In Venita Humphreys RN Business Initiatives Manager 06:36 PM Luis M Villanueva RN Monitor 06:36 PM Carissa Alejandra RT (R) Scrub 06:36 PM Indications Indication Coronary Artery Disease Procedures Performed Procedure CORONARY ARTERY ANGIO S&I Pre-Procedure Checklist Informed consent is complete signed and on chart. H&P is on chart. ID band is on and ID verified with patient. Patient NPO for procedure The procedure was described for the patient and questions were answered. Blood Pressure: 115/74 ECG is on chart. Rhythm: NSR Plan of Care Patient will tolerate the procedure without complications. Adequate level of comfort will be maintained. Hemodynamics will remain stable Patient will recover from procedure without complications. Respiratory function will be maintained. Cardiac rhythm will remain stable. Patient temperature will be maintained. Patient and/or family have verbalized understanding of the procedure. Patient Education Intravenous Access Time IV Size Location DC'd Fluid/Drip Rate Units RN 06:22 PM 18g 1 1/4" Patent On Arrival Rt Antecubital 0.9NaCl 25 ml/hr Luis M Villanueva RN Allergies Iodinated Contrast- Oral and IV Dye Vital Signs Time BP (mmHg) HR (bpm) O2 Sat. RR (bpm) LOC 06:22 PM 115 / 74 79 95 % 16 5 = Fully awake and oriented or at pre-proc level 06:49 PM / % 5 = Fully awake and oriented or at pre-proc level 06:49 PM 136 / 77 86 100 % 16 06:54 PM 138 / 79 85 100 % 27 06:59 PM 108 / 76 82 100 % 27 07:03 PM 109 / 66 80 100 % 10 Procedural Medications Time Medication Dose Units Method Given By 06:48 PM Oxygen 3 L/min nasal cannula Venita Humphreys RN 06:53 PM Solumedrol 125 mg Intravenous Venita Humphreys RN 06:54 PM Benadryl 25 mg Intravenous Venita Humphreys RN 06:54 PM Versed 1 mg Intravenous Venita Humphreys RN 06:54 PM Fentanyl 50 mcg Intravenous Venita Humphreys RN 06:58 PM Lidocaine 2% 10 ml Subcutaneous Saul Jimenez MD ASA Classification: CLASS II- Mild systemic disease (i.e. well-controlled diabetes, hypertension, asthma, cigarette smoking) Manjeet Score Preprocedure Postprocedure Activity 2- Moves 4 extremities sustained head lift Activity 2- Moves 4 extremities sustained head lift Circulation 2- SBP +/= 20 points of pre-anesthetic level Circulation 2- SBP +/= 20 points of pre-anesthetic level Consciousness 2- Awake and alert oriented x 3 Consciousness 2- Awake and alert oriented x 3 O2 Saturation 2- Able to maintain O2 satruation of 92% on room air O2 Saturation 2- Able to maintain O2 satruation of 92% on room air Respiratory 2- Able to deep breathe and cough well Respiratory 2- Able to deep breathe and cough well Total Score 10 Total Score 10 Contrast Agent: Isovue Diagnostic Contrast: 51 ml Total Contrast: 51 ml Fluoro Dose: 72 mGy Procedure Log Time Note Enter By 06:28 PM CathStat 06:36 PM Pt arrived to record label internship 2 at 18:36 tsites 06:36 PM Venita Humphreys RN Position: CirculatorTime in: 18:36 tsites 06:36 PM Luis M Villanueva RN Position: Monitor Time in: 18:36 tsites 06:37 PM Carissa Alejandra RT (R) Position: Scrub Time in: 18:36 tsites 06:39 PM Patient charges- Angio tray pack, Navilyst 3mm J, Pulse Oximetry and ACIST tubing and transducer tsites 06:39 PM Physician arrived 18:39 tsites 06:39 PM Meet and greet completed tsites 06:39 PM Sign in performed according to hospital policy. tsites 06:39 PM Procedure start 18:39 tsites 06:[address] Jimenez discussing risk for dye allergy tsites 06:48 PM Vitals capture started with the following parameters, Patient=Adult, Interval=5 min, Initial Azjzsddr=420 mmHg, Deflation Rate=5 mmHg, Cuff placed on Right Arm 06:48 PM Time: 18:48 Oxygen on at 3 L/min per nasal cannula by Venita Humphreys RN [facility] 06:48 PM Case Start 06:49 PM HR=86 bpm, XGIG=385/77 mmhg, TjP1=465.0 %, Resp=16 B/min, Comment=SR 06:49 PM Time: 18:49 Patient comfortable and pain free: Yes [facility] 06:49 PM Time: 18:49LOC: 5 = Fully awake and oriented or at pre-proc level [facility] 06:53 PM Time: 18:53 Solumedrol 125 mg Intravenous Given by Venita Humphreys RN [facility] 06:54 PM HR=85 bpm, PJYL=661/79 mmhg, QyB1=415.0 %, Resp=27 B/min, Comment=SR 06:54 PM Time: 18:54 Benadryl 25 mg Intravenous Given by Venita Humphreys RN [facility] 06:54 PM Time: 18:54 Versed 1 mg Intravenous Given by Venita Humphreys RN [facility] 06:54 PM Time: 18:54 Fentanyl 50 mcg Intravenous Given by Venita Humphreys [facility] 06:57 PM Recorded ECG: HR=76 Condition=Condition 1 06:57 PM Pressure channel 1 zeroed. 06:58 PM Time out performed according to hospital policy [facility] 06:58 PM Time: 18:58 10 ml Lidocaine 2% to right groin Subcutaneous Given by Saul Jimenez MD [facility] 06:58 PM Micro-Introducer Kit utilized for sheath placement csmith 06:59 PM HR=82 bpm, ZWIF=476/76 mmhg, PcG9=601.0 %, Resp=27 B/min, Comment=SR 06:59 PM Access obtained by percutaneous puncture. 6Fr 10cm Terumo [place] sheath placed in right Femoral artery. [id number] [facility] 06:59 PM 5Fr FR 4 catheter inserted over the wire [facility] 06:59 PM Recorded Pressure: Ao, HR=80, Condition=Condition 1 (Aorta) Ao 96/54/75 07:00 PM RCA angiography performed in multiple views. [facility]smith 07:00 PM Catheter removed [facility] 07:00 PM 5Fr FL 4 catheter inserted over the wire [facility] 07:01 PM LCA angiography performed in multiple views. [facility] 07:01 PM Recorded Pressure: Ao, HR=83, Condition=Condition 1 (Aorta) Ao 98/62/78 07:02 PM Catheter removed [facility] 07:03 PM Wire removed [facility] 07:03 PM Bolus angiogram of right Femoral complete: 4 ml/sec for a total of 7 mls [facility] 07:03 PM HR=80 bpm, YJRT=248/66 mmhg, CkY3=891.0 %, Resp=10 B/min, Comment=SR 07:04 PM Procedure completed at 19:04 csmith 07:04 PM Sign out completed: Radiation Dose 72 mGy Fluoro Time: 0.7 Isovue 370 - 200ml contrast 51 ml given by Saul Jimenez MD. Complications: NoneCardiac Rehab Consult needed: NoConfirmed administered medications: Yes csmith 07:04 PM Isovue 370 - 200ml,1 Bottle(s) used. csmith 07:04 PM Arterial sheath pulled, Mynx closure device used and was Successful [id number] S/N. csmith 07:04 PM Post ECG NSR [facility]smith 07:05 PM Post Blood Pressure 109/66 [facility] 07:05 PM 19:05 Post Pulses Bilateral DP & PT 1+ csmith 07:05 PM Information taught Mynx csmith 07:05 PM Education needs Responsibilities of Patient in Care csmith 07:05 PM Learning barriers :None [facility] 07[facility]05 PM Education Methods Verbal [facility] 07:05 PM Education evaluation Able to repeat information [facility] 07:05 PM Site status No bleeding/hematoma - Rt Groin as reported by Carissa Alejandra RT (R) at 19:05 [facility] 07:05 PM Plavix, Effient or Brilinta given No [facility]smith 07:10 PM Lesion found in LMCA. Pre Stenosis: 15 Pre WALLY Flow: 3: Complete and Brisk Flow/Perfusion csmith 07:11 PM Lesion found in Proximal LAD. Pre Stenosis: 30 Pre WALLY Flow: 3: Complete and Brisk Flow/Perfusion csmith 07:11 PM Lesion found in 1st Diagonal. Pre Stenosis: 30 Pre WALLY Flow: 3: Complete and Brisk Flow/Perfusion csmith 07:11 PM Lesion found in Proximal Circumflex. Pre Stenosis: 30 Pre WALLY Flow: 3: Complete and Brisk Flow/Perfusion csmith 07:11 PM Lesion found in Mid RCA. Pre Stenosis: 40 Pre WALLY Flow: 3: Complete and Brisk Flow/Perfusion csmith 07:14 PM Patient out of room: 19:13 [facility] Complications Complication None Hemodynamics Pressures Site Systolic/A Wave Diastolic/V Wave Mean AO 96 54 75 AO 98 62 78 Post Procedure Information Blood Pressure: 109/66 mmHg Rhythm: NSR Post procedural instructions were given Closure Device Time Device Success/Fail 05/16/2017 7:06:00 PM MynxGrip Successful Site Checks Time Location Status Staff Sheath In? Note 07:05 PM Rt Groin No bleeding/hematoma Carissa Alejandra RT (R) Pulses Time Site Pre-Procedure Post-Procedure Note Bilateral DP & PT 1+ 7:05:00 PM Bilateral DP & PT 1+ Updated by Latesha Jung RT (R) on 05/16/2017 7:14:05 PM Latesha Jung RT electronically signed on 05/16/2017 7:14:36 PM with status of Final
[2017-05-17 04:41] LABS: Basophils % 0.1 %; Hemoglobin 13.1 g/dL (11.5-15.4); Immature Granulocytes % 0.3 % (0-4); Lymphocytes # 0.9 K/mcL (0.6-4.6); Lymphocytes % 12.3 %; Mean Corpuscular HGB Conc 32.8 g/dL (31.6-35.5); Mean Corpuscular Hemoglobin 29.1 pg (28.0-33.3); Mean Corpuscular Volume 88.9 fL (83.0-100.0); Mean Platelet Volume 11.2 fL (9.4-12.4); Monocytes # 0.1 K/mcL (0.0-1.3); Monocytes % 1.2 %; Neutrophils # 6.3 K/mcL (1.6-8.9); Platelet Count 249 K/mcL (140-400); Red Cell Distribution Width 12.4 % (11.5-14.5); Segmented Neutrophils % 86.1 %
[2017-05-17 04:52] LABS: Blood Urea Nitrogen 17 mg/dL (7-20); Calcium 9.7 mg/dL (8.6-10.8); Carbon Dioxide 20 mEq/L (19-29); Chloride 111 mEq/L (98-109); Glucose 175 mg/dL (70-99); Osmolality,Calculated 296 (280-300); Potassium 3.5 mEq/L (3.5-4.5); Sodium 140 mEq/L (136-145)
[2017-05-17 05:15] LABS: BUN/Creatinine Ratio 21 (6-26); eGFR For African Americans > 60 (> 60); eGFR For Non-African Americans > 60 (> 60)
[2017-05-17] MEDS: Famotidine 20 MG TABLET PO SCH (09:43)
[2017-05-17] MEDS: Aspirin Enteric Coated 81 MG Tablet PO SCH (09:43)
[2017-05-17 11:04] VITALS: BP 113/70
--- NOTE | 2017-05-17 11:11 | Invasive Diagnostic Lab Proc ---
Name: Merced Rodriguez Date of Study: 05/16/2017 Date: 1955 Ht: 61.8in Medical Record#: [id number] Age: 62 Wt: 176.37lb Gender: Female BSA: 1.81 Order #: [id number] BMI: 32.46 Physicians Procedure Physician: Saul Jimenez MD Referring MD: Zoey Arthur MD Referring MD: Staff Name Position Time In eVnita Humphreys RN Order Planner 06:36 PM Luis M Villanueva RN Monitor 06:36 PM Carissa Alejandra RT (R) Scrub 06:36 PM Indications Indication Coronary Artery Disease Procedures Performed Procedure CORONARY ARTERY ANGIO S&I Pre-Procedure Checklist Informed consent is complete signed and on chart. H&P is on chart. ID band is on and ID verified with patient. Patient NPO for procedure The procedure was described for the patient and questions were answered. Blood Pressure: 115/74 ECG is on chart. Rhythm: NSR Plan of Care Patient will tolerate the procedure without complications. Adequate level of comfort will be maintained. Hemodynamics will remain stable Patient will recover from procedure without complications. Respiratory function will be maintained. Cardiac rhythm will remain stable. Patient temperature will be maintained. Patient and/or family have verbalized understanding of the procedure. Patient Education Intravenous Access Time IV Size Location DC'd Fluid/Drip Rate Units RN 06:22 PM 18g 1 1/4" Patent On Arrival Rt Antecubital 0.9NaCl 25 ml/hr Luis M Villanueva RN Allergies Iodinated Contrast- Oral and IV Dye Vital Signs Time BP (mmHg) HR (bpm) O2 Sat. RR (bpm) LOC 06:22 PM 115 / 74 79 95 % 16 5 = Fully awake and oriented or at pre-proc level 06:49 PM / % 5 = Fully awake and oriented or at pre-proc level 06:49 PM 136 / 77 86 100 % 16 06:54 PM 138 / 79 85 100 % 27 06:59 PM 108 / 76 82 100 % 27 07:03 PM 109 / 66 80 100 % 10 Procedural Medications Time Medication Dose Units Method Given By 06:48 PM Oxygen 3 L/min nasal cannula Venita Humphreys RN 06:53 PM Solumedrol 125 mg Intravenous Venita Humphreys RN 06:54 PM Benadryl 25 mg Intravenous Venita Humphreys RN 06:54 PM Versed 1 mg Intravenous Venita Humphreys RN 06:54 PM Fentanyl 50 mcg Intravenous Venita Humphreys RN 06:58 PM Lidocaine 2% 10 ml Subcutaneous Saul Jimenez MD ASA Classification: CLASS II- Mild systemic disease (i.e. well-controlled diabetes, hypertension, asthma, cigarette smoking) Manjeet Score Preprocedure Postprocedure Activity 2- Moves 4 extremities sustained head lift Activity 2- Moves 4 extremities sustained head lift Circulation 2- SBP +/= 20 points of pre-anesthetic level Circulation 2- SBP +/= 20 points of pre-anesthetic level Consciousness 2- Awake and alert oriented x 3 Consciousness 2- Awake and alert oriented x 3 O2 Saturation 2- Able to maintain O2 satruation of 92% on room air O2 Saturation 2- Able to maintain O2 satruation of 92% on room air Respiratory 2- Able to deep breathe and cough well Respiratory 2- Able to deep breathe and cough well Total Score 10 Total Score 10 Contrast Agent: Isovue Diagnostic Contrast: 51 ml Total Contrast: 51 ml Fluoro Dose: 72 mGy Procedure Log Time Note Enter By 06:28 PM CathStat 06:36 PM Pt arrived to laboratory clerk 2 at 18:36 tsites 06:36 PM Venita Humphreys RN Position: CirculatorTime in: 18:36 tsites 06:36 PM Luis M Villanueva RN Position: Monitor Time in: 18:36 tsites 06:37 PM Carissa Alejandra RT (R) Position: Scrub Time in: 18:36 tsites 06:39 PM Patient charges- Angio tray pack, Navilyst 3mm J, Pulse Oximetry and ACIST tubing and transducer tsites 06:39 PM Physician arrived 18:39 tsites 06:39 PM Meet and greet completed tsites 06:39 PM Sign in performed according to hospital policy. tsites 06:39 PM Procedure start 18:39 tsites 06:[address] Jimenez discussing risk for dye allergy tsites 06:48 PM Vitals capture started with the following parameters, Patient=Adult, Interval=5 min, Initial Zwqeqtrr=991 mmHg, Deflation Rate=5 mmHg, Cuff placed on Right Arm 06:48 PM Time: 18:48 Oxygen on at 3 L/min per nasal cannula by Venita Humphreys RN [facility] 06:48 PM Case Start 06:49 PM HR=86 bpm, FWMN=347/77 mmhg, OaZ8=337.0 %, Resp=16 B/min, Comment=SR 06:49 PM Time: 18:49 Patient comfortable and pain free: Yes [facility] 06:49 PM Time: 18:49LOC: 5 = Fully awake and oriented or at pre-proc level [facility] 06:53 PM Time: 18:53 Solumedrol 125 mg Intravenous Given by Venita Humphreys RN [facility] 06:54 PM HR=85 bpm, SXYZ=679/79 mmhg, CrT8=047.0 %, Resp=27 B/min, Comment=SR 06:54 PM Time: 18:54 Benadryl 25 mg Intravenous Given by Venita Humphreys RN [facility] 06:54 PM Time: 18:54 Versed 1 mg Intravenous Given by Venita Hupmhreys RN [facility] 06:54 PM Time: 18:54 Fentanyl 50 mcg Intravenous Given by Venita Humphreys RN [facility] 06:57 PM Recorded ECG: HR=76 Condition=Condition 1 06:57 PM Pressure channel 1 zeroed. 06:58 PM Time out performed according to hospital policy [facility] 06:58 PM Time: 18:58 10 ml Lidocaine 2% to right groin Subcutaneous Given by Saul Jimenez MD [facility] 06:58 PM Micro-Introducer Kit utilized for sheath placement csmith 06:59 PM HR=82 bpm, CVRZ=350/76 mmhg, GbY3=033.0 %, Resp=27 B/min, Comment=SR 06:59 PM Access obtained by percutaneous puncture. 6Fr 10cm Terumo [facility] sheath placed in right Femoral artery. [id number] [facility] 06[facility] PM 5Fr FR 4 catheter inserted over the wire [facility] 06:59 PM Recorded Pressure: Ao, HR=80, Condition=Condition 1 (Aorta) Ao 96/54/75 07:00 PM RCA angiography performed in multiple views. csmith 07:00 PM Catheter removed [facility] 07:00 PM 5Fr FL 4 catheter inserted over the wire [facility] 07:01 PM LCA angiography performed in multiple views. [facility] 07:01 PM Recorded Pressure: Ao, HR=83, Condition=Condition 1 (Aorta) Ao 98/62/78 07:02 PM Catheter removed csmith 07:03 PM Wire removed csmith 07:03 PM Bolus angiogram of right Femoral complete: 4 ml/sec for a total of 7 mls csmith 07:03 PM HR=80 bpm, AIRE=040/66 mmhg, EnY7=708.0 %, Resp=10 B/min, Comment=SR 07:04 PM Procedure completed at 19:04 [facility] 07:[facility] PM Sign out completed: Radiation Dose 72 mGy Fluoro Time: 0.7 Isovue 370 - 200ml contrast 51 ml given by Saul Jimenez MD. Complications: NoneCardiac Rehab Consult needed: No - already attending/enrolled in cardiac rehab per patient Confirmed administered medications: Yes [facility] 07:[facility] PM Isovue 370 - 200ml,1 Bottle(s) used. csmith 07:04 PM Arterial sheath pulled, Mynx closure device used and was Successful [id number] S/N. csmith 07:04 PM Post ECG NSR csmith 07:05 PM Post Blood Pressure 109/66 csmith 07:05 PM 19:05 Post Pulses Bilateral DP & PT 1+ csmith 07:05 PM Information taught Mynx csmith 07:05 PM Education needs Responsibilities of Patient in Care csmith 07:05 PM Learning barriers :None [facility] 07:[facility] PM Education Methods Verbal [facility] 07:05 PM Education evaluation Able to repeat information [facility] 07:05 PM Site status No bleeding/hematoma - Rt Groin as reported by Carissa Alejandra RT (R) at 19:05 csmith 07:05 PM Plavix, Effient or Brilinta given No csmith 07:10 PM Lesion found in LMCA. Pre Stenosis: 15 Pre WALLY Flow: 3: Complete and Brisk Flow/Perfusion csmith 07:11 PM Lesion found in Proximal LAD. Pre Stenosis: 30 Pre WALLY Flow: 3: Complete and Brisk Flow/Perfusion csmith 07:11 PM Lesion found in 1st Diagonal. Pre Stenosis: 30 Pre WALLY Flow: 3: Complete and Brisk Flow/Perfusion csmith 07:11 PM Lesion found in Proximal Circumflex. Pre Stenosis: 30 Pre WALLY Flow: 3: Complete and Brisk Flow/Perfusion csmith 07:11 PM Lesion found in Mid RCA. Pre Stenosis: 40 Pre WALLY Flow: 3: Complete and Brisk Flow/Perfusion csmith 07:14 PM Patient out of room: 19:13 [facility] Complications Complication None Hemodynamics Pressures Site Systolic/A Wave Diastolic/V Wave Mean AO 96 54 75 AO 98 62 78 Post Procedure Information Blood Pressure: 109/66 mmHg Rhythm: NSR Post procedural instructions were given Closure Device Time Device Success/Fail 05/16/2017 7:06:00 PM MynxGrip Successful Site Checks Time Location Status Staff Sheath In? Note 07:05 PM Rt Groin No bleeding/hematoma Carissa Alejandra RT (R) Pulses Time Site Pre-Procedure Post-Procedure Note Bilateral DP & PT 1+ 7:05:00 PM Bilateral DP & PT 1+ Updated by Luis M Villanueva RN on 05/17/2017 11:02:42 AM electronically signed on 05/17/2017 11:03:43 AM with status of Final
--- NOTE | 2017-05-17 11:17 | Internal Med Progress Note ---
Date of Encounter: 05/17/17 Time of Encounter: 10:15 - Assessment and plan (1) Chest pain Current Visit: Yes Status: Acute Assessment and plan: Initially presented with chest pain of 8 hours duration. -Initial troponin was negative; repeat troponin was 0.01. -s/p C -Patient tolerated procedure well. -Advised not to do any driving or heavy lifting for the next week. -No bleeding around the entry site. Cardiology will sign off. Qualifiers: Chest pain type: unspecified Qualified Code(s): R07.9 - Chest pain, unspecified (2) CAD (coronary artery disease) Current Visit: Yes Status: Chronic Assessment and plan: -ASA 81 mg PO daily -Plavix 75 mg PO daily -Coreg 3.125 mg PO BID WM -Crestor 40 mg PO HS Qualifiers: Coronary Disease-Associated Artery/Lesion type: [place] artery [place] vs. transplanted heart: [place] heart Associated angina: without angina Qualified Code(s): I25.10 - Atherosclerotic heart disease of [place] coronary artery without angina pectoris (3) HTN (hypertension) Current Visit: Yes Status: Chronic Assessment and plan: Blood pressure is stable; blood pressure this morning was 113/70. Qualifiers: Hypertension type: essential hypertension Qualified Code(s): I10 - Essential (primary) hypertension - Subjective Interval history: Patient was seen and examined but since morning. Patient received cardiac catheterization yesterday. States that she is feeling well. No complications from her procedure. Patient was advised not to drive or lift heavy objects for at least one week. Patient will follow-up with cardiology in the outpatient setting. Currently denies having any chest pain. No complaints at this time. - Constitutional Vitals: Temp Pulse Resp BP Pulse Ox 97.4 F L 103 16 113/70 94 05/17/17 11:03 05/17/17 11:03 05/17/17 11:03 05/17/17 11:03 05/17/17 11:03 General appearance: Present: A&O X 3, pleasant, no acute distress - Head Head exam: Present: atraumatic, normocephalic - Eye Eye exam: Present: PERRL, conjuntiva pink, sclera anicteric Pupils: Present: PERRL - Neck Neck exam general surgery: Present: supple, trachea midline. Absent: lymphadenopathy - Respiratory Respiratory exam: Present: CTAB. Absent: accessory muscle use, rales, rhonchi, wheezes - Cardiovascular Cardiovascular exam: Present: RRR, +S1, +S2. Absent: diastolic murmur, gallop, rubs, systolic murmur - Extremities Exam Extremities exam: Present: warm, radial pulses palpable and symmetrical. Absent : calf tenderness, cyanotic, pedal edema - Skin Skin exam: Present: dry, intact Internal Medicine: Result - Labs CBC & Chem 7: 05/17/17 03:34 05/17/17 03:34 Labs: Short CBC 05/17/17 Range/Units 03:34 WBC 7.3 (4.3-11.1) K/mcL Hgb 13.1 (11.5-15.4) g/dL Hct 40.0 (35.3-44.9) % Plt Count 249 (140-400) K/mcL Neutrophils # 6.3 (1.6-8.9) K/mcL BMP 05/17/17 03:34 Sodium 140 Potassium 3.5 Chloride 111 H Carbon Dioxide 20 BUN 17 Creatinine 0.80 Glucose 175 H Calcium 9.7 - ABG Interpretation ABG results: PT/INR, D-dimer PT 12.7 Seconds (9.4-12.1) H 05/16/17 03:46 Consult Discharge Plan - Plan Referrals: Zoey Arthur MD [Primary Care Provider] -
--- NOTE | 2017-05-17 11:25 | Cardiology Progress Note ---
<Aneudy Metcalf - Last Filed: 05/17/17 13:35> Date of Encounter: 05/17/17 Time of Encounter: 10:45 Assessment and Plan (1) Chest pain Status: Acute Initially presented with chest pain of 8 hours duration. -Initial troponin was negative; repeat troponin was 0.01. -s/p [facility] -Patient tolerated procedure well. -Advised not to do any driving or heavy lifting for the next week. -No bleeding around the entry site. Cardiology will sign off. Qualifiers: Chest pain type: unspecified Qualified Code(s): R07.9 - Chest pain, unspecified (2) CAD (coronary artery disease) Status: Chronic -ASA 81 mg PO daily -Plavix 75 mg PO daily -Coreg 3.125 mg PO BID WM -Crestor 40 mg PO HS Qualifiers: Coronary Disease-Associated Artery/Lesion type: [place] artery [place] vs. transplanted heart: [place] heart Associated angina: without angina Qualified Code(s): I25.10 - Atherosclerotic heart disease of [place] coronary artery without angina pectoris (3) HTN (hypertension) Status: Chronic Blood pressure is stable; blood pressure this morning was 113/70. Qualifiers: Hypertension type: essential hypertension Qualified Code(s): I10 - Essential (primary) hypertension Discussion w patient/family: The assessment and plan as outlined above was discussed with the patient and/or family members who expressed understanding and agreement. All questions were answered. Thank you for involving us in the care of your patient. Please call with any questions. Subjective Interval history: Patient was seen and examined but since morning. Patient received cardiac catheterization yesterday. States that she is feeling well. No complications from her procedure. Patient was advised not to drive or lift heavy objects for at least one week. Patient will follow-up with cardiology in the outpatient setting. Currently denies having any chest pain. No complaints at this time. Objective Vital Signs, Last 4 Hours Temp Pulse Resp BP Pulse Ox 05/17/17 11:03 97.4 F L 103 16 113/70 94 05/17/17 07:30 97.9 F 95 16 107/70 96 Results 05/17/17 03:34 05/17/17 03:34 Lab Results 05/16/17 05/17/17 05/17/17 15:41 03:34 03:34 WBC 7.3 Hgb 13.1 Hct 40.0 Plt Count 249 APTT 87.6 H D Sodium 140 Potassium 3.5 Chloride 111 H Carbon Dioxide 20 BUN 17 Creatinine 0.80 Glucose 175 H Calcium 9.7 Consult Discharge Plan - Plan Instructions: Left Heart Catheterization (DC), Chronic Hypertension (DC) Additional Instructions: Continue home medications Resume your normal activities slowly and return to rehab after cleared by cardiology Return to the ER as needed for any other problems or concerns, or if your symptoms return or worsen. Follow up with your PCP and cardiology as scheduled. Referrals: Zoey Arthur MD [Primary Care Provider] - <BryancolemanLilo - Last Filed: 05/17/17 17:32> Date of Encounter: 05/17/17 Assessment and Plan Discussion w patient/family: I examined this patient and my medical decision-making was reviewed with the Resident Physician. I agree with the documented findings, disposition and treatment plan. Ms. Rodriguez presented with symptoms concerning for unstable angina. She subsequently underwent left heart catheterization which did not demonstrate any concerning findings. Recommend continuing antiplatelet agent and statin. These findings were discussed with the patient. Her groin is soft and nontender without ecchymosis and renal function remains normal after catheterization. Of note, the patient has significant concern about her ongoing fatigue. She is interested in stopping her beta mickey for a washout period to see if her symptoms improve. I do not suspect this will be harmful in the short-term. She will stop her carvedilol at this time and further recommendations of care will be made upon reevaluation as an outpatient. Secondary preventive efforts were discussed in detail with the patient. She will follow up in the outpatient cardiology clinic. Results 05/17/17 03:34 05/17/17 03:34 Lab Results 05/17/17 05/17/17 03:34 03:34 WBC 7.3 Hgb 13.1 Hct 40.0 Plt Count 249 Sodium 140 Potassium 3.5 Chloride 111 H Carbon Dioxide 20 BUN 17 Creatinine 0.80 Glucose 175 H Calcium 9.7
--- NOTE | 2017-05-17 12:11 | Discharge Summary ---
Date of Encounter: 05/17/17 Time of Encounter: 10:30 - Discharge Diagnosis (1) GERD (gastroesophageal reflux disease) Priority: Secondary Status: Chronic Comments: Chronic. Continue home medications. Qualifiers: Esophagitis presence: without esophagitis Qualified Code(s): K21.9 - Gastro -esophageal reflux disease without esophagitis (2) HTN (hypertension) Priority: Secondary Status: Chronic Comments: BP well controlled. Continue home medications. Qualifiers: Hypertension type: essential hypertension Qualified Code(s): I10 - Essential (primary) hypertension (3) Chest pain Priority: Primary Status: Acute Comments: Pt presented to the ED with c/o 8 hours of chest pain prior to arrival, similar to prior [place]. She states that she had some nausea and mild chest discomfort. Pt with history of CAD, 3 stents placed in [place], 1 to LAD and rCA. On January 14 she was admitted with STEMI. She had a cath at that time with LATISHA placed to obtuse marginal vessel. Pt had repeat LHC yesterday, showed mild vessel CAD and stents are patent. Pt has an appointment with cardiology in July and states that due to her increased fatigue and slow recovery time, she would like to have an appointment sooner. [place] working on that. Troponins negative x 3, CXR negative ,lipids WNL, and vitals stable. She denies chest pain since arrival, no nausea or SOB. Pt is stable and appopriate for dishcharge. Qualifiers: Chest pain type: unspecified Qualified Code(s): R07.9 - Chest pain, unspecified (4) DVT prophylaxis Priority: Secondary Status: Acute Comments: Pt was ambulatory (5) CAD (coronary artery disease) Priority: Secondary Status: Chronic Comments: Chronic. Continue home medications. Plan as above. Qualifiers: Coronary Disease-Associated Artery/Lesion type: [place] artery [place] vs. transplanted heart: [place] heart Associated angina: without angina Qualified Code(s): I25.10 - Atherosclerotic heart disease of [place] coronary artery without angina pectoris - Discharge Medications Home Medications: Aspirin Enteric Coated [Aspirin EC] 81 mg PO DAILY #30 01/13/17 [Rx] Clopidogrel [Plavix] 75 mg PO DAILY #30 tab 01/13/17 [Rx] Nitroglycerin 0.4 mg SL Q5MIN PRN #20 01/13/17 [Rx] Famotidine [Pepcid] 20 mg PO BID 03/09/17 [History] Carvedilol [Coreg] 3.125 mg PO BIDWM 04/18/17 [History] Rosuvastatin Calcium [Crestor] 40 mg PO HS 04/18/17 [History] Allergies/Adverse Reactions: 3 Allergy/AdvReac Type Severity Reaction Status Date / Time Iodinated Contrast- Oral and Allergy Hives Verified 04/19/17 14:19 IV Dye Procedures/tests Complete & Pending: Procedures Performed prior 72 hours Category Date Time Status Left Heart Cath [CL Cardiac Catheterization] [CL] [facility] 05/16/17 10:36 Completed Routine Date of admission: 05/15/17 19:43 Primary care physician: Zoey Arthur, Consults: 05/15/17 20:29 Consult to Physician [CONS] Routine Consulting Provider: Tez Polo Reason for Consult: chest pain Time Notified: 20:29 Call Completed: No Discharging clinician: Laurie Reyes Anticipated date of discharge: 05/17/17 - Patient Status Disposition: Home, Self-Care Condition: Good Functional capacity at discharge: independent ambulation Overall status at discharge: patient is back to baseline - Discharge Instructions Follow Up With: Zoey Arthur MD [Primary Care Provider] - Additional Instructions: Continue home medications Resume your normal activities slowly and return to rehab after cleared by cardiology Return to the ER as needed for any other problems or concerns, or if your symptoms return or worsen. Follow up with your PCP and cardiology as scheduled. - Diet and Activity Activity: increase activity as tolerated Diet: advance to your usual diet Hospital course: Ms. Rodriguez is a 62 year old female with PMH of fibromyalgia, CAD with recent [place] and LATISHA, GERD, and HTN. She presents with chest pain for 8 hours that was similar to her last OK. Pt had LHC yesterday, mild CAD and patent stents noted. Pt denies chest pain, sob, dizziness. Vitals are stable and labs are stable. Pt is appropriate for discharge. - Time Spent with Patient Total time spent providing and/or coordinating discharge services: Less than 30 minutes - Constitutional Vitals: Temp Pulse Resp BP Pulse Ox 97.4 F L 103 16 113/70 94 05/17/17 11:03 05/17/17 11:03 05/17/17 11:03 05/17/17 11:03 05/17/17 11:03 General appearance: Present: cooperative, A&O X 3, pleasant, no acute distress, answers questions appropriately - Head Head exam: Present: atraumatic, normal inspection, normocephalic - Eye Eye exam: Present: normal appearance, conjuntiva pink, sclera anicteric - Neck Neck exam general surgery: Present: supple, trachea midline. Absent: lymphadenopathy, tenderness - Respiratory Respiratory exam: Present: CTAB. Absent: accessory muscle use, rales, respiratory distress, rhonchi, wheezes - Cardiovascular Cardiovascular exam: Present: RRR, +S1, +S2. Absent: diastolic murmur, gallop, rubs, systolic murmur - GI/Abdominal GI/Abdominal exam: Present: normal bowel sounds, soft. Absent: distended, hepatomegaly, tenderness - Extremities Exam Extremities exam: Present: normal capillary refill, normal inspection, warm, radial pulses palpable and symmetrical. Absent: calf tenderness, cyanotic, pedal edema - Neurological Exam Neurological exam: Present: alert, oriented X3, no focal deficits. Absent: facial droop, speech deficit - Skin Skin exam: Present: dry, intact, normal color, warm. Absent: rash
== END 2017-05-17 14:23 | disposition home or self-care (01) ==
LOC: 3BNU → SUATTDRO 19:43
PROVIDERS: ADMIT Internal Medicine Cardiovascular Disease; ATTEND Internal Medicine